=== PATIENT | female | born 1945 | race Caucasian/White ===

== ENCOUNTER 2018-11-23 10:33 | Inpatient (IN) | payer MEDICARE, BC ==
--- NOTE | 2018-11-23 10:54 | ED ---
Shortness of Breath - HPI Summary HPI Summary: A 73 y/o F brought in by ambulance presents to ED with c/o SOB onset 4-5 weeks ago and worsening. She states she was remodeling her bathroom, and her house 4- 5 weeks ago became very ioana, and she's be have SOB since. She has SOB even at rest. EMS gave her a nebulizer en route to ED. At bedside, she is feeling better. Associated sx: bilateral LE edema. She's had some weight increase. She takes Torsemide 10mg daily. She sleeps on three pillows which is her baseline. Pt denies any fever, chills, erythema of eyes, sore throat, CP, cough, abdominal pain, N/V, dysuria, hematuria, myalgia, rash, or dizziness. She is a former smoker, quit in 1995. - History of Current Complaint Time Seen by Provider: 11/23/18 10:34 Hx Obtained From: Patient Onset/Duration: Lasting Weeks, Still Present Timing: Constant Current Severity: Moderate Dyspnea At: Rest Associated Signs & Symptoms: Edema - bilat Le Related History: Obesity - Allergy/Home Medications Allergies/Adverse Reactions: Allergies Allergy/AdvReac Type Severity Reaction Status Date / Time hydralazine AdvReac Difficulty Verified 11/28/18 05:56 Breathing Home Medications: Home Medications Allopurinol TAB* [Zyloprim 100 MG TAB*] 200 mg PO QPM 11/23/18 [History Confirmed 11/23/18] Fluticasone-Salmeterol 250-50* [Advair Diskus 250-50*] 1 puff INH BID 11/23/18 [ History Confirmed 11/23/18] Metoprolol Succinate XL TAB* [Toprol XL TAB*] 100 mg PO QPM 11/23/18 [History Confirmed 11/23/18] Multivitamins/Minerals TAB* [Theragran/minerals TAB*] 1 tab PO DAILY 11/23/18 [ History Confirmed 11/23/18] PMH/Surg Hx/FS Hx/Imm Hx Previously Healthy: No Cardiovascular History: Reports: Hx Pacemaker/ICD Respiratory History: Reports: Hx Asthma, Hx Sleep Apnea Sensory History: Denies: Hx Legally Blind, Hx Deafness EENT History: Denies: Hx Deafness Infectious Disease History: No Infectious Disease History: Denies: Traveled Outside the [place] in Last 30 Days - Social History Occupation: Retired Lives: Alone Alcohol Use: Occasionally Hx Tobacco Use: Yes Smoking Status (MU): Former Smoker Review of Systems Negative: Fever, Chills Negative: Erythema Negative: Sore Throat Negative: Chest Pain Positive: Shortness Of Breath. Negative: Cough Negative: Abdominal Pain, Vomiting, Nausea Negative: dysuria, hematuria Positive: Edema - bilat LE. Negative: Myalgia Negative: Rash Neurological: Other - neg: dizziness All Other Systems Reviewed And Are Negative: Yes Physical Exam - Summary Physical Exam Summary: Constitutional: Well-developed, Well-nourished, Alert. (-) Distressed Skin: Warm, Dry HENT: Normocephalic; Atraumatic Eyes: Conjunctiva normal Neck: Musculoskeletal ROM normal neck. (-) JVD, (-) Stridor, (-) Tracheal deviation Cardio: Rhythm regular, rate normal, Heart sounds normal; Intact distal pulses; The pedal pulses are 2+ and symmetric. Radial pulses are 2+ and symmetric. (-) Murmur Pulmonary/Chest wall: Effort normal. (-) Respiratory distress, Crackles, Wheezes , (-) Rales Abd: Soft, (-) epigastric tenderness, (-) Distension, (-) Guarding, (-) Rebound Musculoskeletal: 1+ pitting edema Lymph: (-) Cervical adenopathy Neuro: Alert, Oriented x3 Psych: Mood and affect Normal Triage Information Reviewed: Yes Vital Signs On Initial Exam: Initial Vitals Temp Pulse Resp BP Pulse Ox 98.9 F 75 24 166/78 90 11/23/18 10:39 11/23/18 10:39 11/23/18 10:39 11/23/18 10:39 11/23/18 10:39 Vital Signs Reviewed: Yes Diagnostics - Vital Signs Vital Signs Temp Pulse Resp BP Pulse Ox 11/23/18 10:39 98.9 F 75 24 166/78 90 - Laboratory Result Diagrams: 11/29/18 05:20 12/04/18 06:52 Lab Statement: Any lab studies that have been ordered have been reviewed, and results considered in the medical decision making process. - Radiology CXR Radiology Interpretation Completed By: Radiologist Summary of Radiographic Findings: IMPRESSION: pulmonary edema. ED provider has reviewed this report. - EKG 1049 Cardiac Rate: NL - 83 bpm, PACED Summary of EKG Findings: No STEMI Re-Evaluation - Re-Evaluation 1 Re-Evaluation Time: 12:40 Change: Unchanged Comment: Discussed plan to likely admit patient due to the pulmonary edema. Pt is agreeable to this. Course/Dx - Course Course Of Treatment: Pt is a 73 y/o F brought in by ambulance presenting with SOB at rest onset 4-5 weeks ago and worsening. She was remodeling her bathroom and it got very ioana, and she's be have SOB since. EMS gave her a nebulizer en route to ED. At bedside, she is feeling better. Associated sx: bilateral LE edema. She's had some weight increase. She takes Torsemide 10mg daily. She sleeps on three pillows which is her baseline. She is a former smoker, quit in 1995. Lab work shows: BNP >1300, total bili 2.40, glucose: 119. CXR reveals: pulmonary edema. EKG shows paced rhythm at [address] Logan , hospitalist, who will accept pt for admission. - Diagnoses Provider Diagnoses: Acute exacerbation of CHF (congestive heart failure) - Physician Notifications Discussed Care of Patient With: Reji Logan - hospitalist Time Discussed With Above Provider: 13:14 Instructed by Provider To: Admit As Inpatient - Critical Care Time Critical Care Time: 30-74 min - 45 mins Discharge - Sign-Out/Discharge Documenting (check all that apply): Patient Departure - ADMIT Patient Received Moderate/Deep Sedation with Procedure: No - Discharge Plan Condition: Good Disposition: ADMITTED TO [facility] - Billing Disposition and Condition Condition: GOOD Disposition: Admitted to [facility] - Attestation Statements Document Initiated by Scribe: Yes Documenting Scribe: Yoselin Hale Provider For Whom Shanaibe is Documenting (Include Credential): Dr. Arturo Nolasco MD Scribe Attestation: I, shana Garyibed for Dr. Arturo Nolasco MD on 12/13/18 at 0729. Scribe Documentation Reviewed: Yes Provider Attestation: The documentation as recorded by the Yoselin alvarez accurately reflects the service I personally performed and the decisions made by me, Dr. Arturo Nolasco MD Status of Scribe Document: Viewed
[2018-11-23] MEDS ORDERED: Furosemide IV* 10 MG/ML 2 ML VIAL (20 MG) IV SLOW PU ONE (10:58)
[2018-11-23] MEDS ORDERED: Nitro 2% OINT* (Nitroglycerin) 1 INCH/PAK PAK TOPICAL ONE (10:59)
[2018-11-23 12:43] LABS: ABS Basophils 0.1 10^3/ul (0-0.2); ABS Eosinophils 0.1 10^3/ul (0-0.6); ABS Lymphocytes 0.6 10^3/ul (1.0-4.8); ABS Monocytes 0.7 10^3/ul (0-0.8); ABS Neutrophils 5.1 10^3/ul (1.5-7.7); ABS Nucleated RBC 0 10^3/ul; Eosinophil % 2.2 %; Hematocrit 39 % (35-47); Hemoglobin 12.6 g/dl (12.0-16.0); Lymphocyte % 8.8 %; Mean Corpuscular HGB Conc 32 g/dl (31-36); Mean Corpuscular Hemoglobin 30 pg (27-31); Mean Corpuscular Volume 94 fL (80-97); Mean Platelet Volume 9.1 fL (7.4-10.4); Nucleated Red Blood Cells % 0.1; Platelet Count 195 10^3/ul (150-450); Red Cell Distribution Width 17 % (10.5-15); White Blood Count 6.5 10^3/ul (3.5-10.8)
[2018-11-23 12:56] LABS: Albumin 3.9 g/dL (3.2-5.2); Albumin/Globulin Ratio 1.1 (1-3); BUN/Creatinine Ratio 20.2 (8-20); Calcium 9.6 mg/dL (8.6-10.3); EGFR African American 51.4 (>60); EGFR Non-African American 42.5 (>60); Globulin 3.7 g/dL (2-4); Potassium 3.8 mmol/L (3.5-5.0); Total Bilirubin 2.4 mg/dL (0.2-1.0); Total Protein 7.6 g/dL (6.4-8.9); Troponin I 0.03 ng/mL (<0.04)
[2018-11-23] MEDS ORDERED: Acetaminophen TAB* 325 MG PO PRN (14:31)
[2018-11-23] MEDS ORDERED: Ondansetron INJ* 2 MG/ML VIAL IV PRN (14:31)
[2018-11-23] MEDS ORDERED: Dextrose 50% Syringe 50 ML* 25 GM/50 ML SYRINGE IV PUSH PRN (14:49)
[2018-11-23] MEDS ORDERED: Perflutren Lipid Microsphere* 3 ML VIAL ONE (15:42)
[2018-11-23 15:48] LABS: Troponin I 0.04 ng/mL (<0.04)
[2018-11-23] MEDS: Insulin LISPRO* 1 UNITS UNIT SUBCUT SCH ×2 (17:02→21:35)
[2018-11-23] MEDS: Metoprolol Succinate XL TAB* 100 MG PO SCH (17:06)
[2018-11-23] MEDS: Atorvastatin* 10 MG TAB PO SCH (17:06)
[2018-11-23] MEDS: Potassium Chlor TAB* 20 MEQ TAB.ER PO SCH (17:06)
[2018-11-23] MEDS: Furosemide IV* 10 MG/ML VIAL (40 MG) IV SLOW PU SCH (17:07)
[2018-11-23] MEDS: Allopurinol TAB* 100 MG PO SCH (17:07)
--- NOTE | 2018-11-23 18:14 | ECHO ---
Patient: GIUSEPPE BARKSDALE [facility] Rec#: [id number] : 1945 Date: 11/23/2018 Age: 73y Height: 165 cm / 65.0 in Weight: 123 kg / 271.1 lbs Sex: F BSA: 2.25 Room#: 17 Admit Date#: 11/23/2018 Type: Inpatient Referring: Sekou Galvan Reading: Elier Hoskins MD Furniture Cleaner: Micaela Lopez,HUMBLECS,RDMS CC: Arthur Pham Transthoracic Echocardiogram Indication: CHF BP: 160/73 HR: 70 Rhythm: Paced Findings History: Shortness of breath, edema, AOV replacement, pacemaker, DAIN, former smoker, morbid obesity Technical Comments: The study quality is poor. Patient was scanned sitting upright in a chair. Left Ventricle: The left ventricular chamber size is normal. Moderate concentric left ventricular hypertrophy is observed. There is a prominent septal knuckle. The estimated ejection fraction is 55-60%. There is septal flattening of the interventricular septum consistent with right ventricular volume or pressure overload. Abnormal left ventricular diastolic function is observed. The left ventricular diastolic filling pattern is consistent with pseudonormalization. Left Atrium: The left atrium is severely dilated. Right Ventricle: The right ventricle wall thickness is moderately increased. The right ventricle is moderately dilated. The right ventricular global systolic function is mildly reduced. Right Atrium: The right atrial cavity size is severely dilated. Aortic Valve: The aortic valve structure is not well visualized. There is no evidence of aortic regurgitation. The mean gradient of the aortic valve is 15 mmHg. The aortic valve area, by peak velocities, is calculated at 1 cm2. A bio-prosthetic aortic valve is present. Velocities upper limits of normal; probable normal function. Mitral Valve: There is mitral annular calcification. The mitral valve leaflets are mildly thickened. Mitral valve leaflet mobility is mildly restricted. There is mild to moderate mitral regurgitation. There is mild mitral stenosis. The mean gradient across the mitral valve is 6 mmHg. The mitral valve area, by pressure half time, is calculated at 2.7 cm2. Tricuspid Valve: The tricuspid valve leaflets are normal. There is mild to moderate tricuspid regurgitation. The right ventricular systolic pressure is estimated at 82 mmHg. There is evidence of severe pulmonary hypertension. Pulmonic Valve: The pulmonic valve structure is not well visualized. There is no evidence of pulmonic regurgitation. Pericardium: There is no significant pericardial effusion. Aorta: The aortic root appears normal. The aortic arch is not well visualized. Pulmonary Artery: The main pulmonary artery is not well visualized. Venous: The inferior vena cava is dilated. There is less than 50% respiratory change in the inferior vena cava dimension. Contrast: Definity was used to optimize study. A total of 4 ml was used. Summary: There was not any prior study for comparison. Conclusions The study quality is poor. Moderate concentric left ventricular hypertrophy is observed. There is a prominent septal knuckle. The estimated ejection fraction is 55-60%. There is septal flattening of the interventricular septum consistent with right ventricular volume or pressure overload. The left ventricular diastolic filling pattern is consistent with pseudonormalization. The left atrium is severely dilated. The right ventricle wall thickness is moderately increased. The right ventricle is moderately dilated. The right ventricular global systolic function is mildly reduced. The right atrial cavity size is severely dilated. A bio-prosthetic aortic valve is present. Velocities upper limits of normal; probable normal function. Mitral valve leaflet mobility is mildly restricted. There is mild mitral stenosis. There is mild to moderate mitral regurgitation. There is mild to moderate tricuspid regurgitation. The right ventricular systolic pressure is estimated at 82 mmHg. There is evidence of severe pulmonary hypertension. Severe pulmonary hypertension may be related to pulmonary disease. Difficult to assess the MR; consider GENEVIEVE if there is a high index of suspicion for severe MR. Measurements Name Value Normal Range RVIDd (AP) 2D 4.5 cm (0.9 - 2.6) RAd ISD 4CH 7.1 cm (3.4 - 4.9) RA (A4C)W 4.4 cm (2.9 - 4.6) IVSd (2D) 1.7 cm (0.6 - 1) LVPWd (2D) 1.3 cm (0.6 - 1) LVIDd (2D) 4.4 cm (3.6 - 5.4) LVIDs (2D) 2.7 cm - LV FS (2D) 38 % (25 - 45) Aortic Annulus 1.6 cm (1.4 - 2.6) Ao root diameter (2D) 2.2 cm (2.1 - 3.5) Ascending Ao 2.2 cm (2.1 - 3.4) LA dimension (AP) 2D 4.8 cm (2.3 - 3.8) LAd ISD 4CH 6.3 cm (2.9 - 5.3) LA ISD 4CH W 6.8 cm (2.5 - 4.5) Name Value Normal Range MV E-wave Vmax 1.8 m/sec - MV deceleration time 198 msec - MV A-wave Vmax 1.2 m/sec - MV E:A ratio 1.5 ratio - LV septal e' Vmax 0.04 m/sec - LV lateral e' Vmax 0.05 m/sec - LV E:e' septal ratio 45 ratio - LV E:e' lateral ratio 36 ratio - Name Value Normal Range AV Vmax 2.5 m/sec - AV VTI 59 cm - AV peak gradient 25 mmHg - AV mean gradient 15 mmHg - LVOT diameter 1.5 cm - LVOT Vmax 1.4 m/sec - LVOT VTI 29 cm - LVOT peak gradient 8 mmHg - LVOT mean gradient 4 mmHg - DOI (VTI) 0.5 ratio - MARK (continuity Vmax) 1 cm2 - MARK (continuity VTI) 0.9 cm2 - Name Value Normal Range MV Vmax 1.8 m/sec - MV VTI 52 cm - MV peak gradient 14 mmHg - MV mean gradient 6 mmHg - MV PHT 82 msec - MR Vmax 5.8 m/sec - MR VTI 178 cm - MVA (PHT) 2.7 cm2 - MVA (continuity VTI) 1 cm2 - Name Value Normal Range TR Vmax 4.1 m/sec - TR peak gradient 67 mmHg - RAP 15 mmHg - RVSP 82 mmHg - IVC diameter 3.2 cm - Name Value Normal Range PV Vmax 0.9 m/sec - PV peak gradient 3.2 mmHg -
--- NOTE | 2018-11-23 20:13 | HP ---
CC: Dr. Kenan Maurice; Dr. Reji Logan; Dr. Arthur Pham* ADMISSION HISTORY AND PHYSICAL: DATE OF ADMISSION: 11/23/18 PRIMARY CARE PROVIDER: Dr. Kenan Maurice. OUTPATIENT COMPENSATION AND HRIS ANALYST: Dr. Arthur Pham. MY ATTENDING WHILE IN THE HOSPITAL: Dr. Reji Logan* (dictated by NICOLE Naranjo). CHIEF COMPLAINT: Severe shortness of breath x1 day. HISTORY OF PRESENT ILLNESS: Ms. Ovalles is 73-year-old female with past medical history significant for asthma, AFib, sleep apnea, and pacemaker for sick sinus syndrome as well as aortic valve replacement for aortic insufficiency , who presented to the emergency department for 1 day of severe shortness of breath. The patient has been having worsening shortness of breath in the past 3 weeks. She attributed it to a cold or worsening of asthma, but initially it responded to inhaler treatments, however, it has become more refractory over the past 3 weeks. Today, she was unable to walk up and down 3 steps without being severely short of breath and called the ambulance. The patient for several months now has been having worsening lower extremity swelling as well as increasing abdominal girth. The patient believes she has gained 25 pounds in that time. The patient states that she tries to watch salt in her diet, but admits she is able to identify several high salt foods such as potato chips, pizza and can soups that she eats routinely. The patient has never had a heart attack. The patient did not have any chest pain. The patient has no known history of IA. The patient had her pacemaker put in several years ago. The patient had an aortic valve replacement for aortic insufficiency 2 to 3 years ago and does not have any known issues with that. The patient has obstructive sleep apnea and uses a CPAP at home. The patient denies any noncompliants with this. The patient followed up with Dr. Pham approximately 4 months ago and will see him again in a month for a repeat echo. The patient has 3-pillow orthopnea, but cannot state a time of onset for this. The patient denies fevers , chills, nausea, vomiting, abdominal pain or diarrhea. The patient can identify no inciting events for the onset of her symptoms nor anything that has changed over the past day. The patient has no sick contacts or exposures to the flu or other upper respiratory symptoms. The patient denies palpitations. The patient's most recent pacemaker interrogation showed to have no other recent changes from medications. The patient in the emergency department was needing supplemental oxygen to maintain oxygen saturation above 90%. The patient has had a BNP, TAO, and we were asked to evaluate for admission for heart failure exacerbation. PAST MEDICAL HISTORY: Asthma; aortic insufficiency, status post replacement; paroxysmal atrial fibrillation; sick sinus syndrome; obstructive sleep apnea and diabetes mellitus. PAST SURGICAL HISTORY: Pacemaker insertion, aortic valve replacement, right hip surgery x2, right thumb surgery x2, tonsillectomy, , cholecystectomy and partial hysterectomy. MEDICATIONS: 1. Tylenol 650 mg p.o. q.6 hours as needed. 2. Demadex 10 mg p.o. daily. 3. Multivitamin 1 tab p.o. daily. 4. ProAir 2 puffs inhalation q.4 hours as needed. 5. Metoprolol succinate 100 mg p.o. daily. 6. Lovastatin 40 mg p.o. daily. 7. Topicort 0.5 % topical b.i.d. as needed. 8. Vitamin D and calcium 1 tab p.o. b.i.d. 9. Eliquis 5 mg p.o. b.i.d. 10. Allopurinol 200 mg p.o. q.p.m. 11. Advair 250/50 one puff inhalation b.i.d. ALLERGIES: CATS. FAMILY HISTORY: The patient's mother of old age. The patient's father of heart disease and complications of alcoholism. The patient has a brother who of lymphoma, a sister who has diabetes, a sister who has a heart valve issue and another sister who of ruptured cerebral aneurysm. SOCIAL HISTORY: The patient quit smoking in 1995. The patient smoked on and off from her teenage years until at that point. The patient drinks occasional alcohol. Denies illicit drug use. 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 The patient is and has 2 children. The patient's surrogate decision maker will be her daughter, Boo Ovalles. REVIEW OF SYSTEMS: A 14-point review of systems was reviewed and is negative except as above in the HPI. PHYSICAL EXAMINATION GENERAL: The patient is a 73-year-old female, who appears stated age and sitting comfortably in bed, in no acte distress. VITAL SIGNS: Temperature 98.9, pulse rate 70, respirations 21, oxygen saturation 97% on 2 L. Blood pressure 160/73. HEENT: Head: Normocephalic, atraumatic. Sclerae anicteric. No conjunctival injection. Nasal mucosa moist. Oral mucosa moist. No pharyngeal erythema, discharge, or exudate. NECK: Supple, nontender. No lymphadenopathy. No carotid bruits auscultated. No JVD. RESPIRATORY: Diminished in the bilateral lower lobes, slight wheezes heard in the bilateral middle lobes, good air exchange bilaterally. No adventitious lung sounds. CARDIAC: Regular rate and rhythm. No clicks, gallops, or rubs. Grade 2/6 systolic ejection murmur, heard best at the right upper sternal border. ABDOMEN: Soft, nontender, nondistended. Umbilical hernia present. No hepatosplenomegaly. No abdominal bruits auscultated. No hepatojugular reflux. GENITOURINARY: No suprapubic or CVA tenderness. SKIN: Dry skin in the bilateral lower extremities. 2+ pitting edema in bilateral lower extremities. PSYCHIATRIC: Pleasant and cooperative. DIAGNOSTIC STUDIES/LAB DATA: White blood cell count 6.5, hemoglobin 12.6, platelet count 195. Sodium 145, potassium 3.8, chloride 102, carbon dioxide 33 , anion gap 9, BUN 25, creatinine 1.24, glucose 119, lactic acid 1.8, calcium 9.6. Bilirubin 2.4, AST 26, ALT 15, alkaline phosphatase 109, troponin I 0.03, BNP greater than 1500. Protein 7.6, albumin 3.9, globulin 3.7. Studies: Electrocardiogram shows paced rhythm, rate of 70, left bundle branch morphology, unable to interpret for ischemic changes. Chest x-ray read as pulmonary edema. Left axillary surgical clips. Cardiomegaly. Prosthetic aortic valves. ASSESSMENT AND PLAN: Impression: Ms. Ovalles is a 73-year-old female with past medical history significant for hypertension, asthma, aortic insufficiency , atrial fibrillation, obstructive sleep apnea, and sick sinus syndrome, who presented to the emergency department with several months of increased weight gain, leg swelling and several weeks of increased shortness of breath and was found to be in acute heart failure. The patient will be admitted to the hospital for repeat echocardiogram and diuresis. 1. Acute heart failure, unknown type. The patient has no known history of heart failure, reduced ejection fraction. The patient has a history of aortic insufficiency and a history of aortic valve replacement. We will update the patient's echocardiogram. If indicted, patient's pacemaker should be interrogated. We will get patient's most recent rehab tech's notes. The patient will be started on furosemide 40 mg IV b.i.d. The patient will have troponins, if elevated, repeat EKG in the morning. The patient may need further ischemic workup if she is found to have a reduced ejection fraction. The patient will be continued on her metoprolol. If patient has reduced ejection fraction, additional medications such as an SHAHEEN inhibitor and spironolactone should be considered. The patient will have strict I's and O's and daily weights. 2. Asthma. The patient will have DuoNeb p.r.n. and home inhalers. The patient 's wheezing is likely due to pulmonary edema and likely not related to asthma exacerbation. 3. Sick sinus syndrome. The patient has a pacemaker. 4. Paroxysmal atrial fibrillation. The patient appears to be normal sinus rhythm. Continue patient's Eliquis and metoprolol. The patient has a pacemaker. 5. Obstructive sleep apnea. The patient has a CPAP, she will use her home CPAP while in the hospital. 6. Diabetes mellitus. The patient states she has diabetes mellitus, but is on medications for it. We will check a hemoglobin A1c and maintain her blood sugars with insulin sliding scale while in the hospital. 7. FEN: The patient is fluid overloaded. The patient will have the a heart- healthy diet without caffeine. 8. Disposition. The patient will be admitted inpatient with an expected time of stay greater than 2 days. 9. Code status. The patient would like to be a full code. The patient's surrogate decision maker will be her daughter as above. 10. DVT prophylaxis. The patient is on Eliquis. TIME SPENT: Approximately 60 minutes was spent on the admission of this patient , 30 of which was spent [id number] with the patient obtaining history and physical and discussing treatment plan. Plan was discussed with my attending, Dr. Jason Logan, she is in agreement. NICOLE NARANJO [id number]/[facility] #: [id number] [place]
[2018-11-23 20:57] LABS: Troponin I 0.04 ng/mL (<0.04)
[2018-11-23] MEDS: Apixaban* 5 MG TAB PO SCH (21:11)
[2018-11-23] MEDS: Mometasone/Formoter 200/5 MDI INH SCH (21:52)
[2018-11-24 06:08] LABS: ABS Basophils 0.1 10^3/ul (0-0.2); ABS Eosinophils 0.2 10^3/ul (0-0.6); ABS Lymphocytes 0.7 10^3/ul (1.0-4.8); ABS Monocytes 0.8 10^3/ul (0-0.8); ABS Nucleated RBC 0 10^3/ul; Eosinophil % 3.7 %; Hematocrit 36 % (35-47); Hemoglobin 11.4 g/dl (12.0-16.0); Lymphocyte % 11.2 %; Mean Corpuscular HGB Conc 32 g/dl (31-36); Mean Corpuscular Hemoglobin 30 pg (27-31); Mean Corpuscular Volume 94 fL (80-97); Mean Platelet Volume 9.2 fL (7.4-10.4); Nucleated Red Blood Cells % 0; Platelet Count 166 10^3/ul (150-450); Red Cell Distribution Width 17 % (10.5-15); White Blood Count 5.8 10^3/ul (3.5-10.8)
[2018-11-24 06:18] LABS: Calcium 9.1 mg/dL (8.6-10.3); Magnesium 1.7 mg/dL (1.9-2.7); Potassium 3.7 mmol/L (3.5-5.0)
[2018-11-24 06:24] LABS: BUN/Creatinine Ratio 20.1 (8-20); EGFR Non-African American 38.9 (>60)
[2018-11-24] MEDS: Mometasone/Formoter 200/5 MDI INH SCH ×2 (08:17→20:20)
[2018-11-24] MEDS: Insulin LISPRO* 1 UNITS UNIT SUBCUT SCH ×4 (08:22→20:49)
[2018-11-24] MEDS: Multivitamins/Minerals TAB PO SCH (08:23)
[2018-11-24] MEDS: Apixaban* 5 MG TAB PO SCH ×2 (08:23→21:09)
[2018-11-24] MEDS: Potassium Chlor TAB* 20 MEQ TAB.ER PO SCH (08:23)
[2018-11-24] MEDS: Furosemide IV* 10 MG/ML VIAL (40 MG) IV SLOW PU SCH ×2 (08:25→17:32)
[2018-11-24] MEDS ORDERED: Magnesium Sulfate 1 GM IV* 1 GM/100 ML BAG IV ONE (08:55)
[2018-11-24] MEDS ORDERED: Potassium Chloride LIQUID* 20 MEQ PACKET PO ONE (08:58)
[2018-11-24] MEDS: Albuterol/Ipratropium NEB.SOL* Albuterol 2.5 MG/Ipratropium 0.5 MG 3 ML INH PRN (12:06)
[2018-11-24 14:40] LABS: BUN/Creatinine Ratio 23.3 (8-20); Calcium 9.1 mg/dL (8.6-10.3); EGFR African American 49.2 (>60); EGFR Non-African American 40.6 (>60); Magnesium 1.9 mg/dL (1.9-2.7); Potassium 4.1 mmol/L (3.5-5.0)
--- NOTE | 2018-11-24 15:53 | PN ---
Subjective Date of Service: 11/24/18 Interval History: Episode of increase SOB this AM with RN - resolved with furosemide. On my interview, reports improvement in dyspnea from before admission. Symptoms with ambulation but not when upright in chair. Only sleeps in chair, for years. Objective Active Medications: Acetaminophen (Tylenol Tab*) 650 mg PO Q6H PRN PRN Reason: FEVER/PAIN Last Admin: 11/24/18 11:32 Dose: 650 mg Albuterol/Ipratropium (Duoneb (Albuterol 2.5 Mg/Ipratropium 0.5 Mg)) 1 neb INH Q4H PRN PRN Reason: SOB/WHEEZING Last Admin: 11/24/18 12:06 Dose: 1 neb Allopurinol (Zyloprim Tab*) 200 mg PO QPM [facility] Last Admin: 11/23/18 17:07 Dose: 200 mg Apixaban (Eliquis*) 5 mg PO BID [facility] Last Admin: 11/24/18 08:23 Dose: 5 mg Atorvastatin Calcium (Lipitor*) 10 mg PO QPM [facility]; Protocol Last Admin: 11/23/18 17:06 Dose: 10 mg Dextrose (D50w Syringe 50 Ml*) 12.5 gm IV PUSH .FOR FS < 60 - SS PRN PRN Reason: FS < 60 Furosemide (Lasix Iv*) 40 mg IV SLOW PU 0800,1700 [facility] Last Admin: 11/24/18 08:25 Dose: 40 mg Insulin Human Lispro (Humalog*) 0 units SUBCUT ACHS [facility]; Protocol Last Admin: 11/24/18 11:57 Dose: 3 units Metoprolol Succinate (Toprol Xl Tab*) 100 mg PO QPM [facility] Last Admin: 11/23/18 17:06 Dose: 100 mg Mometasone Furoate/Formoterol Fumar (Dulera 200/5 Mdi*) 2 puff INH BID [facility] Last Admin: 11/24/18 08:17 Dose: 2 puff Multivitamins/Minerals (Theragran/Minerals Tab*) 1 tab PO DAILY [facility] Last Admin: 11/24/18 08:23 Dose: 1 tab Ondansetron HCl (Zofran Inj*) 4 mg IV Q6H PRN PRN Reason: NAUSEA Vital Signs - 8 hr 11/24/18 11/24/18 08:00 08:20 Pulse Rate 70 Respiratory 20 14 Rate O2 Sat by Pulse 98 Oximetry Oxygen Devices in Use Now: Nasal Cannula Appearance: well appearing, sitting in chair and speaking full sentences Ears/Nose/Mouth/Throat: Mucous Membranes Moist Neck: - - unable to assess JVP given obese neck Respiratory: - - no crackles, decreased sounds at bases Cardiovascular: RRR Abdominal: NL Sounds; No Tenderness; No Distention Lymphatic: No Cervical Adenopathy Extremities: - - 2+ pitting edema to knees, R leg shorter than L Result Diagrams: 11/24/18 05:46 11/24/18 14:00 Assess/Plan/Problems-Billing 73W with HTN, HFpEF, DM2 on diet controll, bioprosthetic AV, afib, SSS with PPM , morbid obesity c/b DAIN, presents with SOB, found volume overloaded, now diuresing well on IV furosemide. - Patient Problems (1) Heart failure, diastolic, with acute decompensation Comment: Pt with dietary indiscretion at home - high salt. No other concerning signs/symptoms for other cause of exacerbation. Likely that pHTN is from HF with contribution from DAIN. - continue furosemide 40mg IV bid; monitor BMP and replete lytes prn - closely follow daily weights and Is & Os - attempting to contact outpatient department editor Vero - pt has follow up with echo scheduled for later this month (2) Obstructive sleep apnea Comment: - will use home CPAP while admitted (3) Hypertension Comment: cont home beta hedy (4) Morbid obesity with BMI of 40.0-44.9, adult Comment: diet and exercise encouraged (5) Atrial fibrillation Comment: AV paced - cont apixaban - on metoprolol succ 100mg daily (6) Asthma Comment: - home Dulera inhaler - cont nebs prn (7) Diabetes type 2, controlled Current Visit: Yes Status: Acute Code(s): E11.9 - TYPE 2 DIABETES MELLITUS WITHOUT COMPLICATIONS SNOMED Code(s): 94901902 Comment: Pt reports diet-controlled at home. - AISS with fingersticks while admitted - consider DC if low use - f/u A1c - cont home atorva (seems this was for primary ppx) (8) DVT prophylaxis Current Visit: Yes Comment: on DOAC for afib (9) Full code status Current Visit: Yes Status and Disposition: Will continue IV furosemide until symptoms and volume status improve.
[2018-11-24] MEDS: Atorvastatin* 10 MG TAB PO SCH (17:32)
[2018-11-24] MEDS: Metoprolol Succinate XL TAB* 100 MG PO SCH (17:32)
[2018-11-24] MEDS: Allopurinol TAB* 100 MG PO SCH (17:32)
[2018-11-25 06:37] LABS: Anion Gap 12 mmol/L (2-11); CO2 Carbon Dioxide 26 mmol/L (22-32); Chloride 104 mmol/L (101-111); Potassium 4.3 mmol/L (3.5-5.0); Sodium 142 mmol/L (135-145)
[2018-11-25 06:38] LABS: BUN/Creatinine Ratio 26.6 (8-20); Blood Urea Nitrogen 34 mg/dL (6-24); Calcium 8.9 mg/dL (8.6-10.3); EGFR African American 49.6 (>60); Glucose 139 mg/dL (70-100); Magnesium 1.9 mg/dL (1.9-2.7)
[2018-11-25 06:41] LABS: Troponin I 0.04 ng/mL (<0.04)
[2018-11-25] MEDS: Mometasone/Formoter 200/5 MDI INH SCH ×2 (08:15→19:57)
[2018-11-25] MEDS: Furosemide IV* 10 MG/ML VIAL (40 MG) IV SLOW PU SCH ×2 (08:39→17:14)
[2018-11-25] MEDS: Multivitamins/Minerals TAB PO SCH (08:39)
[2018-11-25] MEDS: Insulin LISPRO* 1 UNITS UNIT SUBCUT SCH ×4 (08:39→21:26)
[2018-11-25] MEDS: Apixaban* 5 MG TAB PO SCH ×2 (09:06→21:28)
[2018-11-25] MEDS: Metoprolol Succinate XL TAB* 100 MG PO SCH (17:14)
[2018-11-25] MEDS: Allopurinol TAB* 100 MG PO SCH (17:15)
[2018-11-25] MEDS: Atorvastatin* 10 MG TAB PO SCH (17:15)
[2018-11-25] MEDS ORDERED: GuaiFENesin DM sugar free* 5 ML UDC PO PRN (18:02)
--- NOTE | 2018-11-25 18:08 | PN ---
Subjective Interval History: Pt able to sleep on 2 pillows last night. Still requiring oxygen at rest - was not on oxygen supplemental at home. Has been peeing a lot. Objective Active Medications: Acetaminophen (Tylenol Tab*) 650 mg PO Q6H PRN PRN Reason: FEVER/PAIN Last Admin: 11/24/18 11:32 Dose: 650 mg Albuterol/Ipratropium (Duoneb (Albuterol 2.5 Mg/Ipratropium 0.5 Mg)) 1 neb INH Q4H PRN PRN Reason: SOB/WHEEZING Last Admin: 11/24/18 12:06 Dose: 1 neb Allopurinol (Zyloprim Tab*) 200 mg PO QPM [facility] Last Admin: 11/25/18 17:15 Dose: 200 mg Apixaban (Eliquis*) 5 mg PO BID [facility] Last Admin: 11/25/18 09:06 Dose: 5 mg Atorvastatin Calcium (Lipitor*) 10 mg PO QPM [facility]; Protocol Last Admin: 11/25/18 17:15 Dose: 10 mg Dextrose (D50w Syringe 50 Ml*) 12.5 gm IV PUSH .FOR FS < 60 - SS PRN PRN Reason: FS < 60 Furosemide (Lasix Iv*) 40 mg IV SLOW PU 0800,1700 [facility] Last Admin: 11/25/18 17:14 Dose: 40 mg Guaifenesin/Dextromethorphan (Robitussin Dm Sugar Free*) 10 ml PO Q6H PRN PRN Reason: Cough/phlegm Insulin Human Lispro (Humalog*) 0 units SUBCUT ACHS [facility]; Protocol Last Admin: 11/25/18 17:14 Dose: 2 units Metoprolol Succinate (Toprol Xl Tab*) 100 mg PO QPM [facility] Last Admin: 11/25/18 17:14 Dose: 100 mg Mometasone Furoate/Formoterol Fumar (Dulera 200/5 Mdi*) 2 puff INH BID [facility] Last Admin: 11/25/18 08:15 Dose: 2 puff Multivitamins/Minerals (Theragran/Minerals Tab*) 1 tab PO DAILY [facility] Last Admin: 11/25/18 08:39 Dose: 1 tab Ondansetron HCl (Zofran Inj*) 4 mg IV Q6H PRN PRN Reason: NAUSEA Vital Signs - 8 hr 11/25/18 11/25/18 12:05 15:40 Temperature 97.6 F 98.2 F Pulse Rate 70 70 Respiratory 22 20 Rate Blood Pressure 136/68 139/67 (mmHg) O2 Sat by Pulse 96 97 Oximetry Oxygen Devices in Use Now: Nasal Cannula Appearance: well appearing sitting in chair and speaking full sentences Neck: - - unable to assess JVP Respiratory: Clear to Auscultation Cardiovascular: RRR Abdominal: NL Sounds; No Tenderness; No Distention Extremities: - - 2+ pitting edema half way up shins - improved from yesterday Result Diagrams: 11/24/18 05:46 11/25/18 05:22 Assess/Plan/Problems-Billing 73W with HTN, HFpEF, DM2 on diet control, bioprosthetic AV, afib on AC, SSS with PPM, morbid obesity c/b DAIN, asthma, presents with SOB, found volume overloaded, now diuresing well on IV furosemide. - Patient Problems (1) Heart failure, diastolic, with acute decompensation Comment: Pt with dietary indiscretion at home - high salt. No other concerning signs/symptoms for other cause of exacerbation. Likely that pHTN is from HF with contribution from DAIN. - continue furosemide 40mg IV bid; monitor BMP and replete lytes prn - closely follow daily weights and Is & Os - attempting to contact outpatient portfolio administrator Vero - pt has follow up with echo scheduled for later this month - CPAP for DAIN should help remove fluid - titrate off O2 as tolerated (2) Obstructive sleep apnea Comment: - will use home CPAP while admitted (3) Atrial fibrillation Comment: AV paced - cont apixaban - on metoprolol succ 100mg daily (4) Hypertension Comment: cont home beta hedy (5) Morbid obesity with BMI of 40.0-44.9, adult Comment: diet and exercise encouraged (6) Asthma Comment: - home Dulera inhaler - cont nebs prn (7) Diabetes type 2, controlled Comment: Diet-controlled at home. A1c here 6.8%. - AISS with fingersticks while admitted - consider DC if low use - cont home atorva (seems this was for primary ppx) (8) DVT prophylaxis Comment: on DOAC for afib (9) Full code status Comment: Daughter oBo phone: [phone] Status and Disposition: Will continue IV furosemide until symptoms and volume status improve. Consider home services (LAB SYSTEMS ANALYST vs [facility]). Boo (daughter): [phone] wants to be updated with plan.
[2018-11-26] MEDS: Mometasone/Formoter 200/5 MDI INH SCH ×2 (07:48→19:21)
[2018-11-26] MEDS: Multivitamins/Minerals TAB PO SCH (08:25)
[2018-11-26] MEDS: Insulin LISPRO* 1 UNITS UNIT SUBCUT SCH ×4 (08:25→20:00)
[2018-11-26] MEDS: Furosemide IV* 10 MG/ML VIAL (40 MG) IV SLOW PU SCH ×2 (08:25→17:31)
[2018-11-26] MEDS: Apixaban* 5 MG TAB PO SCH ×2 (08:25→20:00)
[2018-11-26 08:30] LABS: BUN/Creatinine Ratio 25.8 (8-20); Calcium 9.4 mg/dL (8.6-10.3); EGFR African American 47.9 (>60); EGFR Non-African American 39.6 (>60); Magnesium 1.9 mg/dL (1.9-2.7)
--- NOTE | 2018-11-26 10:07 | PN ---
Subjective Date of Service: 11/26/18 Interval History: HD #4 on 11/26 73W with HTN, HFpEF, DM2 on diet control, bioprosthetic AV, afib on AC, SSS with PPM, morbid obesity c/b DAIN, asthma, presents with SOB, found volume overloaded Overnight no acute event, VSS 2L NC. +UOP Balance -170 for 24 hours, +BM Labs reviewed this morning metabolic alkalosis->contraction. Seen this evening, pleasant but still feeling SOB, reports mildly improved since admission, no CP, no palps, does still have edema but not painful. After discussion says she has been gaining weight since , and SOB started then as well. Will reach out to Dr. Bajwa tomorrow. Small nosebleed today, will offer spray. Objective Active Medications: Acetaminophen (Tylenol Tab*) 650 mg PO Q6H PRN PRN Reason: FEVER/PAIN Last Admin: 11/24/18 11:32 Dose: 650 mg Albuterol/Ipratropium (Duoneb (Albuterol 2.5 Mg/Ipratropium 0.5 Mg)) 1 neb INH Q4H PRN PRN Reason: SOB/WHEEZING Last Admin: 11/24/18 12:06 Dose: 1 neb Allopurinol (Zyloprim Tab*) 200 mg PO QPM [facility] Last Admin: 11/25/18 17:15 Dose: 200 mg Apixaban (Eliquis*) 5 mg PO BID [facility] Last Admin: 11/26/18 08:25 Dose: 5 mg Atorvastatin Calcium (Lipitor*) 10 mg PO QPM [facility]; Protocol Last Admin: 11/25/18 17:15 Dose: 10 mg Dextrose (D50w Syringe 50 Ml*) 12.5 gm IV PUSH .FOR FS < 60 - SS PRN PRN Reason: FS < 60 Furosemide (Lasix Iv*) 40 mg IV SLOW PU 0800,1700 [facility] Last Admin: 11/26/18 08:25 Dose: 40 mg Guaifenesin/Dextromethorphan (Robitussin Dm Sugar Free*) 10 ml PO Q6H PRN PRN Reason: Cough/phlegm Insulin Human Lispro (Humalog*) 0 units SUBCUT ACHS [facility]; Protocol Last Admin: 11/26/18 08:25 Dose: 2 units Metoprolol Succinate (Toprol Xl Tab*) 100 mg PO QPM [facility] Last Admin: 11/25/18 17:14 Dose: 100 mg Mometasone Furoate/Formoterol Fumar (Dulera 200/5 Mdi*) 2 puff INH BID [facility] Last Admin: 11/26/18 07:48 Dose: 2 puff Multivitamins/Minerals (Theragran/Minerals Tab*) 1 tab PO DAILY [facility] Last Admin: 11/26/18 08:25 Dose: 1 tab Ondansetron HCl (Zofran Inj*) 4 mg IV Q6H PRN PRN Reason: NAUSEA Vital Signs - 8 hr 11/26/18 11/26/18 11/26/18 03:33 06:14 06:30 Temperature 97.3 F 97.8 F Pulse Rate 70 69 Respiratory 20 24 22 Rate Blood Pressure 148/76 156/75 (mmHg) O2 Sat by Pulse 94 98 Oximetry 11/26/18 11/26/18 07:50 07:51 Temperature Pulse Rate 71 71 Respiratory 14 14 Rate Blood Pressure (mmHg) O2 Sat by Pulse 94 94 Oximetry Oxygen Devices in Use Now: Nasal Cannula Appearance: Pleasant well appearing woman mild SOB after long conversation Eyes: No Scleral Icterus, PERRLA Ears/Nose/Mouth/Throat: NL Teeth, Lips, Gums, Mucous Membranes Moist Respiratory: - - Distant airsounds but no specific crackles, mild diminshed to bases, no wheeze Cardiovascular: RRR, - - Pacer Abdominal: No Hepatosplenomegaly, - - Mild distention non tender NABS Extremities: - - 4+ pitting edema to upper domínguez, dopplerable pulses per RN report Skin: No Rash or Ulcers Neurological: Alert and Oriented x 3 Result Diagrams: 11/24/18 05:46 11/26/18 07:56 Assess/Plan/Problems-Billing 73W with HTN, HFpEF, DM2 on diet control, bioprosthetic AV, afib on AC, SSS with PPM, morbid obesity c/b DAIN, asthma, presents with SOB, found volume overloaded, with sig elevated RSVP on echo here--now diuresing well on IV furosemide. Ddx worsening vs new? R sided CHF 2/2 MVI or other cause of pHTN, will reach out to outpt distribution operation supervisor - Patient Problems (1) Heart failure, diastolic, with acute decompensation Current Visit: Yes Status: Acute Code(s): I50.33 - ACUTE ON CHRONIC DIASTOLIC (CONGESTIVE) HEART FAILURE SNOMED Code(s): 714458387 Comment: Pt with dietary indiscretion at home - high salt. No other concerning signs/symptoms for other cause of exacerbation. Likely that pHTN is from HF with contribution from DAIN. - continue furosemide 40mg IV bid; monitor BMP and replete lytes prn - closely follow daily weights and Is & Os - attempting to contact outpatient distribution operation supervisor Vero - pt has follow up with echo scheduled for later this month-question if Mitral valve involvement - CPAP for DAIN should help remove fluid - titrate off O2 as tolerated - Contraction alkalosis today, continue to monitor (2) Atrial fibrillation Current Visit: Yes Status: Acute Code(s): I48.91 - UNSPECIFIED ATRIAL FIBRILLATION SNOMED Code(s): 31151110 Comment: AV paced - cont apixaban - on metoprolol succ 100mg daily (3) Hypertension Current Visit: Yes Status: Acute Code(s): I10 - ESSENTIAL (PRIMARY) HYPERTENSION SNOMED Code(s): 41013879 Comment: cont home beta hedy (4) Asthma Current Visit: Yes Status: Acute Code(s): J45.909 - UNSPECIFIED ASTHMA, UNCOMPLICATED SNOMED Code(s): 184271312 Comment: - home Dulera inhaler - cont nebs prn (5) Diabetes type 2, controlled Current Visit: Yes Status: Acute Code(s): E11.9 - TYPE 2 DIABETES MELLITUS WITHOUT COMPLICATIONS SNOMED Code(s): 37028874 Comment: Diet-controlled at home. A1c here 6.8%. - AISS with fingersticks while admitted - consider DC if low use - cont home atorva (seems this was for primary ppx) (6) Obstructive sleep apnea Current Visit: Yes Status: Acute Code(s): G47.33 - OBSTRUCTIVE SLEEP APNEA ( ADULT) (PEDIATRIC) SNOMED Code(s): 33458612 Comment: - will use home CPAP while admitted (7) Morbid obesity with BMI of 40.0-44.9, adult Current Visit: Yes Status: Acute Code(s): E66.01 - MORBID (SEVERE) OBESITY DUE TO EXCESS CALORIES; Z68.41 - BODY MASS INDEX (BMI) 40.0-44.9, ADULT SNOMED Code(s): 496041580 Comment: diet and exercise encouraged (8) DVT prophylaxis Current Visit: Yes Status: Acute Code(s): HVS5158 - SNOMED Code(s): 033655808 Comment: on DOAC for afib (9) Full code status Current Visit: Yes Status: Acute Code(s): Z78.9 - OTHER SPECIFIED HEALTH STATUS SNOMED Code(s): 964275371 Comment: Daughter Boo phone: [phone], updated today 11/26 Status and Disposition: Will continue IV furosemide until symptoms and volume status improve. Consider home services (ADDICTIONS COUNSELOR vs [facility]). Boo (daughter): [phone] wants to be updated with plan.
[2018-11-26] MEDS: Atorvastatin* 10 MG TAB PO SCH (17:31)
[2018-11-26] MEDS: Metoprolol Succinate XL TAB* 100 MG PO SCH (17:31)
[2018-11-26] MEDS: Allopurinol TAB* 100 MG PO SCH (17:31)
[2018-11-26] MEDS ORDERED: Oxymetazoline 0.05% NASAL SPR* 15 ML BTL BOTH NARES ONE (17:49)
[2018-11-27 06:18] LABS: ABS Basophils 0.1 10^3/ul (0-0.2); ABS Eosinophils 0.2 10^3/ul (0-0.6); ABS Lymphocytes 0.6 10^3/ul (1.0-4.8); ABS Monocytes 0.9 10^3/ul (0-0.8); ABS Neutrophils 6.1 10^3/ul (1.5-7.7); ABS Nucleated RBC 0 10^3/ul; Eosinophil % 3.1 %; Hematocrit 36 % (35-47); Hemoglobin 11.7 g/dl (12.0-16.0); Lymphocyte % 7.5 %; Mean Corpuscular HGB Conc 32 g/dl (31-36); Mean Corpuscular Hemoglobin 30 pg (27-31); Mean Corpuscular Volume 94 fL (80-97); Nucleated Red Blood Cells % 0; Platelet Count 181 10^3/ul (150-450); Red Blood Count 3.86 10^6/ul (4.00-5.40); Red Cell Distribution Width 17 % (10.5-15); White Blood Count 7.9 10^3/ul (3.5-10.8)
[2018-11-27 06:34] LABS: BUN/Creatinine Ratio 30.6 (8-20); Calcium 9.5 mg/dL (8.6-10.3); EGFR African American 58.5 (>60); EGFR Non-African American 48.3 (>60); Potassium 4.3 mmol/L (3.5-5.0)
[2018-11-27] MEDS: Saline NASAL DROPS 0.65%* 1 DROP BTL BOTH NARES PRN (06:38)
[2018-11-27] MEDS: Mometasone/Formoter 200/5 MDI INH SCH ×2 (07:49→20:09)
[2018-11-27] MEDS: Furosemide IV* 10 MG/ML VIAL (40 MG) IV SLOW PU SCH ×2 (08:28→17:11)
[2018-11-27] MEDS: Insulin LISPRO* 1 UNITS UNIT SUBCUT SCH ×4 (08:30→20:50)
[2018-11-27] MEDS: Multivitamins/Minerals TAB PO SCH (08:31)
[2018-11-27] MEDS: Apixaban* 5 MG TAB PO SCH ×2 (08:31→20:51)
[2018-11-27] MEDS: Albuterol/Ipratropium NEB.SOL* Albuterol 2.5 MG/Ipratropium 0.5 MG 3 ML INH PRN ×2 (08:53→14:09)
--- NOTE | 2018-11-27 14:18 | PN ---
Subjective Date of Service: 11/27/18 Interval History: HD #5 on 11/27 73W with HTN, HFpEF, DM2 on diet control, bioprosthetic AV, afib on AC, SSS with PPM, morbid obesity c/b DAIN, asthma, presents with SOB, found volume overloaded. Overnight no acute event, VSS 2L NC. +UOP Balance -500 for 24 hours, +BM, down 4 lbs since admission Labs reviewed this morning, stable Seen this afternoon, pleasant but still feeling SOB, reports mildly improved since admission, no CP, no palps, does still have edema but not painful. After discussion says she has been gaining weight since , and SOB started then as well. spoke to Dr. Baig her last dry weight was 240 , so about 14 lsb volume overloaded. Objective Active Medications: Acetaminophen (Tylenol Tab*) 650 mg PO Q6H PRN PRN Reason: FEVER/PAIN Last Admin: 11/24/18 11:32 Dose: 650 mg Albuterol/Ipratropium (Duoneb (Albuterol 2.5 Mg/Ipratropium 0.5 Mg)) 1 neb INH Q4H PRN PRN Reason: SOB/WHEEZING Last Admin: 11/27/18 14:09 Dose: 1 neb Allopurinol (Zyloprim Tab*) 200 mg PO QPM [facility] Last Admin: 11/26/18 17:31 Dose: 200 mg Apixaban (Eliquis*) 5 mg PO BID [facility] Last Admin: 11/27/18 08:31 Dose: 5 mg Atorvastatin Calcium (Lipitor*) 10 mg PO QPM [facility]; Protocol Last Admin: 11/26/18 17:31 Dose: 10 mg Dextrose (D50w Syringe 50 Ml*) 12.5 gm IV PUSH .FOR FS < 60 - SS PRN PRN Reason: FS < 60 Furosemide (Lasix Iv*) 40 mg IV SLOW PU 0800,1700 [facility] Last Admin: 11/27/18 08:28 Dose: 40 mg Guaifenesin/Dextromethorphan (Robitussin Dm Sugar Free*) 10 ml PO Q6H PRN PRN Reason: Cough/phlegm Insulin Human Lispro (Humalog*) 0 units SUBCUT ACHS [facility]; Protocol Last Admin: 11/27/18 11:24 Dose: 2 units Metoprolol Succinate (Toprol Xl Tab*) 100 mg PO QPM [facility] Last Admin: 11/26/18 17:31 Dose: 100 mg Mometasone Furoate/Formoterol Fumar (Dulera 200/5 Mdi*) 2 puff INH BID [facility] Last Admin: 11/27/18 07:49 Dose: 2 puff Multivitamins/Minerals (Theragran/Minerals Tab*) 1 tab PO DAILY [facility] Last Admin: 11/27/18 08:31 Dose: 1 tab Ondansetron HCl (Zofran Inj*) 4 mg IV Q6H PRN PRN Reason: NAUSEA Sodium Chloride (Sodium Chloride 0.65% Nasal Drops*) 1 drop BOTH NARES Q4H PRN PRN Reason: DRY SKIN Last Admin: 11/27/18 06:38 Dose: 1 drop Vital Signs - 8 hr 11/27/18 11/27/18 11/27/18 06:38 07:10 07:51 Temperature 97.7 F Pulse Rate 70 65 Respiratory 18 18 14 Rate Blood Pressure 154/68 (mmHg) O2 Sat by Pulse 97 97 Oximetry 11/27/18 11/27/18 11/27/18 08:55 11:46 14:11 Temperature 97.7 F Pulse Rate 70 70 70 Respiratory 20 18 18 Rate Blood Pressure 147/70 (mmHg) O2 Sat by Pulse 94 97 98 Oximetry Oxygen Devices in Use Now: Nasal Cannula Result Diagrams: 11/27/18 05:54 11/27/18 05:54 Assess/Plan/Problems-Billing 73W with HTN, HFpEF, pHTN (group 2/3), DM2 on diet control, bioprosthetic AV, afib on AC, SSS with PPM, morbid obesity c/b DAIN, asthma, presents with SOB, found volume overloaded, with sig elevated RSVP on echo here--now diuresing well on IV furosemide. Ddx worsening vs CHF in setting of dietary or diuretic failure. - Patient Problems (1) Heart failure, diastolic, with acute decompensation Current Visit: Yes Status: Acute Code(s): I50.33 - ACUTE ON CHRONIC DIASTOLIC (CONGESTIVE) HEART FAILURE SNOMED Code(s): 169995718 Comment: Pt with dietary indiscretion at home - high salt. No other concerning signs/symptoms for other cause of exacerbation. Likely that pHTN is from HF with contribution from DAIN (Group 2/3), last measured RVSP->~60, here 80 - continue furosemide 40mg IV bid; monitor BMP and replete lytes prn, add low dose spironolactone 12.5mg 11/27, and uptitrate to 25mg 11/28 - closely follow daily weights and Is & Os - Spoke with Vero - pt has follow up with echo scheduled for later this month-last dry weight is 240, and likely just failed outpt dieursis. - CPAP for DAIN should help remove fluid - titrate off O2 as tolerated (2) Atrial fibrillation Current Visit: Yes Status: Acute Code(s): I48.91 - UNSPECIFIED ATRIAL FIBRILLATION SNOMED Code(s): 74904299 Comment: AV paced - cont apixaban - on metoprolol succ 100mg daily (3) Hypertension Current Visit: Yes Status: Acute Code(s): I10 - ESSENTIAL (PRIMARY) HYPERTENSION SNOMED Code(s): 21012762 Comment: cont home beta hedy, adding spironolactone per outpt channel executive (4) Asthma Current Visit: Yes Status: Acute Code(s): J45.909 - UNSPECIFIED ASTHMA, UNCOMPLICATED SNOMED Code(s): 865255217 Comment: - home Dulera inhaler - cont nebs prn (5) Diabetes type 2, controlled Current Visit: Yes Status: Acute Code(s): E11.9 - TYPE 2 DIABETES MELLITUS WITHOUT COMPLICATIONS SNOMED Code(s): 38119951 Comment: Diet-controlled at home. A1c here 6.8%. - AISS with fingersticks while admitted - consider DC if low use - cont home atorva (seems this was for primary ppx) (6) Obstructive sleep apnea Current Visit: Yes Status: Acute Code(s): G47.33 - OBSTRUCTIVE SLEEP APNEA ( ADULT) (PEDIATRIC) SNOMED Code(s): 44397344 Comment: - will use home CPAP while admitted (7) Morbid obesity with BMI of 40.0-44.9, adult Current Visit: Yes Status: Acute Code(s): E66.01 - MORBID (SEVERE) OBESITY DUE TO EXCESS CALORIES; Z68.41 - BODY MASS INDEX (BMI) 40.0-44.9, ADULT SNOMED Code(s): 811575810 Comment: diet and exercise encouraged (8) DVT prophylaxis Current Visit: Yes Status: Acute Code(s): LIS0535 - SNOMED Code(s): 191009021 Comment: on DOAC for afib (9) Full code status Current Visit: Yes Status: Acute Code(s): Z78.9 - OTHER SPECIFIED HEALTH STATUS SNOMED Code(s): 548878643 Comment: Daughter Boo phone: [phone], updated today 11/27-she does expect daily calls Status and Disposition: Will continue IV furosemide until symptoms and volume status improve, has sig volume to go still. Consider home services ([employer] vs [facility]). Boo (daughter): wants to be updated with plan.
[2018-11-27] MEDS: Metoprolol Succinate XL TAB* 100 MG PO SCH (17:12)
[2018-11-27] MEDS: Allopurinol TAB* 100 MG PO SCH (17:12)
[2018-11-27] MEDS: Atorvastatin* 10 MG TAB PO SCH (17:12)
[2018-11-28] MEDS: Saline NASAL DROPS 0.65%* 1 DROP BTL BOTH NARES PRN (03:31)
[2018-11-28] MEDS ORDERED: hydrALAZINE IV* 20 MG/ML VIAL IV SLOW PU PRN (04:28)
[2018-11-28] MEDS ORDERED: diPHENhydraMINE IV* 50 MG in NS 0.9% 50 ML* 50 ML IVPB ONE (05:14)
[2018-11-28] MEDS ORDERED: methylPREDNISolone 125 MG* 2 ML VIAL IV ONE (05:15)
[2018-11-28] MEDS ORDERED: diPHENhydraMINE IV* 50 MG/ML 1 ml VIAL (BENADRYL) SLOW PUSH ONE (05:16)
--- NOTE | 2018-11-28 05:16 | PN ---
Hospitalist Progress Note Date of Service: 11/28/18 Called by RN about pt being flushed and SOB after dose of Hydralazine. Asked to repeat VS and possibly due to peripheral vasodilation w/hydralazine or an allergic reaction. Ordered Solumedrol and Benadryl as VS are repeated.
[2018-11-28 07:08] LABS: CO2 Carbon Dioxide 33 mmol/L (22-32); Calcium 9.6 mg/dL (8.6-10.3); Chloride 98 mmol/L (101-111); Magnesium 1.8 mg/dL (1.9-2.7); Sodium 143 mmol/L (135-145)
[2018-11-28 07:13] LABS: BUN/Creatinine Ratio 33.7 (8-20); Blood Urea Nitrogen 34 mg/dL (6-24); EGFR African American 65.2 (>60); EGFR Non-African American 53.9 (>60); Glucose 119 mg/dL (70-100)
[2018-11-28 07:24] LABS: Anion Gap 12 mmol/L (2-11)
[2018-11-28] MEDS: Furosemide IV* 10 MG/ML VIAL (40 MG) IV SLOW PU SCH ×2 (07:29→18:20)
[2018-11-28] MEDS: Insulin LISPRO* 1 UNITS UNIT SUBCUT SCH ×4 (08:28→22:23)
[2018-11-28] MEDS: Apixaban* 5 MG TAB PO SCH (08:28)
[2018-11-28] MEDS: Spironolactone TAB* 25 MG PO SCH (08:28)
[2018-11-28] MEDS: Multivitamins/Minerals TAB PO SCH (08:28)
[2018-11-28] MEDS: Mometasone/Formoter 200/5 MDI INH SCH ×2 (08:34→19:56)
[2018-11-28] MEDS: Albuterol/Ipratropium NEB.SOL* Albuterol 2.5 MG/Ipratropium 0.5 MG 3 ML INH PRN (08:34)
[2018-11-28] MEDS ORDERED: Albuterol/Ipratropium NEB.SOL* Albuterol 2.5 MG/Ipratropium 0.5 MG 3 ML ONE (11:52)
[2018-11-28] MEDS: Albuterol/Ipratropium NEB.SOL* Albuterol 2.5 MG/Ipratropium 0.5 MG 3 ML INH SCH ×4 (11:57→23:28)
[2018-11-28] MEDS ORDERED: methylPREDNISolone SOD 40 MG* 1 ML VIAL IV SCH (12:00)
--- NOTE | 2018-11-28 13:50 | CONSULT ---
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 She reports orthopnea also. She came to ER 11/23 for resp distress. She was initially admitted with what appeared to be acute CHF exaccerbation, bialteral pulmonary congestion, started on IV diuretics. She was maintained in NSR, continued on eliquis for AC. She was diuresed, feeling better. Overngiht she was given hydralazine for hypertension, then developed some flushing, though to be an allergic reaction but no change in BP or rashes. She developed resp distress afterward but no evidence of wheezing. She was hypoxic and started on 4 L NC. I was called because she had continued tachypnea. A CXR this morning demonstrated diffuse right sided haziness consistent with congestion and likely a large pleural effusion. She was transferred to ICU for possible NIV need. on Arrival, she is awake, alert, some use of acc muscle but able to give history. feeling she has sob+, no cp/n/v/abd pain. no fever/chills. no cough/ sputum. she confirms history and symptoms as above from admission. ROS: negative except for pertinent positives mentioned above. 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; 2 children, bahmanrgatpipe is daughter Boo Allergies: CATS Home Medications: Acetaminophen TAB* [Tylenol TAB*] 650 mg PO Q6H PRN 11/23/18 [History Confirmed 11/23/18] Albuterol inh POWDER (NF) [Proair Respiclick] 2 puff INH Q4HR PRN 11/23/18 [ History Confirmed 11/23/18] Allopurinol TAB* [Zyloprim 100 MG TAB*] 200 mg PO QPM 11/23/18 [History Confirmed 11/23/18] Amoxicillin PO (*) [Amoxicillin 500 MG CAP*] 2,000 mg PO ONCE PRN 11/23/18 [ History Confirmed 11/23/18] Apixaban* [Eliquis*] 5 mg PO BID 11/23/18 [History Confirmed 11/23/18] Calcium Carbonate/Vitamin D3 [Calcium 500 + Vit D Caplet] 1 tab PO BID 11/23/18 [History Confirmed 11/23/18] Desoximetasone [Topicort] 0.05 % TOPICAL BID PRN 11/23/18 [History Confirmed 04/06] Fluticasone-Salmeterol 250-50* [Advair Diskus 250-50*] 1 puff INH BID 11/23/18 [ History Confirmed 11/23/18] Lovastatin (NF) [Mevacor (NF)] 40 mg PO QPM 11/23/18 [History Confirmed 11/23/18 ] Metoprolol Succinate XL TAB* [Toprol XL TAB*] 100 mg PO QPM 11/23/18 [History Confirmed 11/23/18] Multivitamins/Minerals TAB* [Theragran/minerals TAB*] 1 tab PO DAILY 11/23/18 [ History Confirmed 11/23/18] Torsemide TAB* [Demadex*] 10 mg PO QAM 11/23/18 [History Confirmed 11/23/18] Tele: NSR Vitals: Vital Signs Temp 97.5 F 11/28/18 13:24 Pulse 89 11/28/18 13:24 Resp 25 11/28/18 13:24 BP 175/85 11/28/18 13:24 Pulse Ox 94 11/28/18 13:24 Intake & Output 11/27/18 11/28/18 11/28/18 18:59 06:59 18:59 Intake Total 1040 240 120 Output Total 500 500 300 Balance 540 -260 -180 Weight 111.039 kg 112.6 kg Intake: Oral 1040 240 120 Output: Urine 500 500 300 O2/Vent: NC 4 L -> NIV Infusions: heplock Current Medications: Acetaminophen (Tylenol Tab*) 650 mg PO Q6H PRN PRN Reason: FEVER/PAIN Last Admin: 11/24/18 11:32 Dose: 650 mg Albuterol/Ipratropium (Duoneb (Albuterol 2.5 Mg/Ipratropium 0.5 Mg)) 1 neb INH [id number] AWAKE [facility] Last Admin: 11/28/18 11:57 Dose: 1 neb Allopurinol (Zyloprim Tab*) 200 mg PO QPM [facility] Last Admin: 11/27/18 17:12 Dose: 200 mg Atorvastatin Calcium (Lipitor*) 10 mg PO QPM [facility]; Protocol Last Admin: 11/27/18 17:12 Dose: 10 mg Dextrose (D50w Syringe 50 Ml*) 12.5 gm IV PUSH .FOR FS < 60 - SS PRN PRN Reason: FS < 60 Furosemide (Lasix Iv*) 40 mg IV SLOW PU 0800,1700 [facility] Last Admin: 11/28/18 07:29 Dose: 40 mg Guaifenesin/Dextromethorphan (Robitussin Dm Sugar Free*) 10 ml PO Q6H PRN PRN Reason: Cough/phlegm Insulin Human Lispro (Humalog*) 0 units SUBCUT ACHS [facility]; Protocol Last Admin: 11/28/18 12:34 Dose: 3 units Methylprednisolone Sodium Succinate (Solu-Medrol 40 Mg) 40 mg IV Q8H [facility] Last Admin: 11/28/18 12:34 Dose: 40 mg Metoprolol Succinate (Toprol Xl Tab*) 100 mg PO QPM [facility] Last Admin: 11/27/18 17:12 Dose: 100 mg Mometasone Furoate/Formoterol Fumar (Dulera 200/5 Mdi*) 2 puff INH BID [facility] Last Admin: 11/28/18 08:34 Dose: 2 puff Multivitamins/Minerals (Theragran/Minerals Tab*) 1 tab PO DAILY [facility] Last Admin: 11/28/18 08:28 Dose: 1 tab Ondansetron HCl (Zofran Inj*) 4 mg IV Q6H PRN PRN Reason: NAUSEA Sodium Chloride (Sodium Chloride 0.65% Nasal Drops*) 1 drop BOTH NARES Q4H PRN PRN Reason: DRY SKIN Last Admin: 11/28/18 03:31 Dose: 1 drop Spironolactone (Aldactone Tab*) 25 mg PO DAILY [facility] Last Admin: 11/28/18 08:28 Dose: 25 mg Physical Exam: General: awake, alert, resp distress+, no diaphoresis Head: normocephalic, atraumatic HEENT: no pallor, no icterus, moist mucous membranes Neck: soft, supple, no jvd, no stridor CVS: normal rate, regular, no murmur Resp: bilateral air entry but diminished R>L, no RRW, mild acc muscle use Abdomen: soft, nontender, nondistended, BS+ Ext: pulses+, warm, no edema Skin: intact Neuro: awake, alert, orientedx3, moving all extremities, no gross focal deficit Labs: Laboratory Results - last 24 hr 11/27/18 11/27/18 11/28/18 16:09 19:37 06:03 Sodium 143 Potassium TNP Chloride 98 L Carbon Dioxide 33 H Anion Gap 12 H BUN 34 H Creatinine 1.01 H Est GFR ( Amer) 65.2 Est GFR (Non-Af Amer) 53.9 BUN/Creatinine Ratio 33.7 H Glucose 119 H POC Glucose (mg/dL) 190 H 194 H Calcium 9.6 Magnesium 1.8 L 11/28/18 11/28/18 11/28/18 07:20 08:00 11:07 Sodium Potassium 4.1 Chloride Carbon Dioxide Anion Gap BUN Creatinine Est GFR ( Amer) Est GFR (Non-Af Amer) BUN/Creatinine Ratio Glucose POC Glucose (mg/dL) 154 H 194 H Calcium Magnesium Imaging: cxr 11/28 - right sided large pleural effusion, congestion+ Assessment: 73y F w/pmhx of asthma, Afib, 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 She reports orthopnea also. She came to ER 11/23 for resp distress. She was initially admitted with what appeared to be acute CHF exaccerbation, bialteral pulmonary congestion, started on IV diuretics. She was maintained in NSR, continued on eliquis for AC. She was diuresed, feeling better. Overngiht she was given hydralazine for hypertension, then developed some flushing, though to be an allergic reaction but no change in BP or rashes. She developed resp distress afterward but no evidence of wheezing. She was hypoxic and started on 4 L NC. I was called because she had continued tachypnea. A CXR this morning demonstrated diffuse right sided haziness consistent with congestion and likely a large pleural effusion. She was transferred to ICU for possible NIV need. -Acute hypoxic respiratory failure -Large right pleural effusion -Acute decompensated LV diastolic heart failure -Cor Pulmonale -Pulmonary congestion Sleep apnea -Pulmonary Hypertension -TAO, improved Afib s/p PPM DM Plan: Neuro- awake/alert. delirium prec. asp prec CVS- -BP stable, HR stable -in NSR -hold eliquis for thoracentesis planned tomorrow -cont metoprolol -cont lasix 40mg IV BID for ongoign diuresis -cont aldactone -noted TTE earlier with LV diastolic dysfxn, RV dilated, elevated RVSP, septal flattening; may all be related to LV diastolic heart failure with combination of DAIN/asthma, unclear withotu RHC down the line. Resp- -on NC, starting NIV -CXR with large effusion on right, congestion+ -cont IV diuretics -We discussed large right effusion and need for drainage. she is currently on 4 L, mild tachypnea and some acc muscle use. Bilateral diminished BS. she was given eliquis dose this morning. Currently being placed on NIV. we discussed that if she feel better on NIV we may observe her the rest of the day and try for therapeutic thoracentesis in AM tomorrow due to her being on eliquis for AC and risk of bleeding, given her overall obese body habitus as well. -dec solumedrol to 40mg IV daily -cont bronchodilators ID- afebrile. wbc 7. nontoxic appearing. likely noninfectious. hold abx GI- NPO on NIV. trial of liquids if off later. Cardiac diet Renal- TAO from admission improved. K okay, no acidosis. Making urine. Cont lasix 40mg IV BID. Heme- hg stable, plt stable -hold eliquis (for AFib) for thoracentesis tomorrow Endo- Maintain BG<200, insulin protocol as needed. Noted hga1c 6.8 Musculsk- pressure ulcer prophylaxis. Bedrest. Wounds- none Nutrition- cardiac diet DVT prophylaxis: SCD; hold eliquis GI prophylaxis: none indicated Central Line: no Arterial Line: no Bacon Cathetor: no Disposition: Patient requires Critical Care/ICU for respiratory failure Patient Clinical Status: guarded Code Status: full code Total Critical Care time is 45 minutes, excluding procedures/teaching Nicolas Sarkar MD Cosmetic Surgeon (Electronically Signed)
[2018-11-28] MEDS ORDERED: Spironolactone TAB* 25 MG PO ONE (14:24)
--- NOTE | 2018-11-28 17:04 | PN ---
Subjective Date of Service: 11/28/18 Interval History: HOSPITALIST PROGRESS NOTE Patient seen and examined at bedside. Care reviewed and d/w Marcy Gordon RN. She states she was feeling better last night. Woke up around 3 AM and went to the bathroom and felt a little more dyspneic. BP was elevated and received Hydralazine IV at 4:46 and developed a "flushed" sensation and dyspnea got worse. Initially the impression was she was having an allergic reaction to Hydralazine and received Solumedrol, breathing treatments, but dyspnea persisted. Family History: Unchanged from Admission Social History: Unchanged from Admission Past Medical History: Unchanged from Admission Objective Active Medications: Acetaminophen (Tylenol Tab*) 650 mg PO Q6H PRN PRN Reason: FEVER/PAIN Last Admin: 11/24/18 11:32 Dose: 650 mg Albuterol/Ipratropium (Duoneb (Albuterol 2.5 Mg/Ipratropium 0.5 Mg)) 1 neb INH [id number] AWAKE [facility] Last Admin: 11/28/18 15:19 Dose: 1 neb Allopurinol (Zyloprim Tab*) 200 mg PO QPM [facility] Last Admin: 11/27/18 17:12 Dose: 200 mg Atorvastatin Calcium (Lipitor*) 10 mg PO QPM [facility]; Protocol Last Admin: 11/27/18 17:12 Dose: 10 mg Dextrose (D50w Syringe 50 Ml*) 12.5 gm IV PUSH .FOR FS < 60 - SS PRN PRN Reason: FS < 60 Furosemide (Lasix Iv*) 40 mg IV SLOW PU 0800,1700 [facility] Last Admin: 11/28/18 07:29 Dose: 40 mg Guaifenesin/Dextromethorphan (Robitussin Dm Sugar Free*) 10 ml PO Q6H PRN PRN Reason: Cough/phlegm Insulin Human Lispro (Humalog*) 0 units SUBCUT ACHS [facility]; Protocol Last Admin: 11/28/18 12:34 Dose: 3 units Methylprednisolone Sodium Succinate (Solu-Medrol 40 Mg) 40 mg IV DAILY [facility] Metoprolol Succinate (Toprol Xl Tab*) 100 mg PO QPM [facility] Last Admin: 11/27/18 17:12 Dose: 100 mg Mometasone Furoate/Formoterol Fumar (Dulera 200/5 Mdi*) 2 puff INH BID [facility] Last Admin: 11/28/18 08:34 Dose: 2 puff Multivitamins/Minerals (Theragran/Minerals Tab*) 1 tab PO DAILY [facility] Last Admin: 11/28/18 08:28 Dose: 1 tab Ondansetron HCl (Zofran Inj*) 4 mg IV Q6H PRN PRN Reason: NAUSEA Sodium Chloride (Sodium Chloride 0.65% Nasal Drops*) 1 drop BOTH NARES Q4H PRN PRN Reason: DRY SKIN Last Admin: 11/28/18 03:31 Dose: 1 drop Spironolactone (Aldactone Tab*) 25 mg PO DAILY [facility] Last Admin: 11/28/18 08:28 Dose: 25 mg Vital Signs - 8 hr 11/28/18 11/28/18 11/28/18 11:24 11:59 13:24 Temperature 97.7 F 97.5 F Pulse Rate 84 88 89 Respiratory 18 20 25 Rate Blood Pressure 170/82 175/85 (mmHg) O2 Sat by Pulse 96 94 94 Oximetry 11/28/18 11/28/18 11/28/18 13:27 13:46 14:00 Temperature Pulse Rate 89 86 86 Respiratory 29 21 Rate Blood Pressure 175/85 171/82 (mmHg) O2 Sat by Pulse 97 99 100 Oximetry 11/28/18 11/28/18 11/28/18 14:01 14:16 14:31 Temperature Pulse Rate 85 83 85 Respiratory 22 21 22 Rate Blood Pressure 163/76 144/67 144/77 (mmHg) O2 Sat by Pulse 100 99 98 Oximetry 11/28/18 11/28/18 11/28/18 14:46 15:00 15:01 Temperature Pulse Rate 79 81 81 Respiratory 17 19 19 Rate Blood Pressure 168/77 172/82 (mmHg) O2 Sat by Pulse 100 100 100 Oximetry 11/28/18 11/28/18 11/28/18 15:16 15:19 15:31 Temperature Pulse Rate 84 83 81 Respiratory 22 19 18 Rate Blood Pressure 174/85 158/91 (mmHg) O2 Sat by Pulse 100 100 100 Oximetry 11/28/18 11/28/18 11/28/18 15:46 16:00 16:01 Temperature Pulse Rate 80 78 78 Respiratory 19 20 21 Rate Blood Pressure 151/68 142/65 (mmHg) O2 Sat by Pulse 99 98 98 Oximetry 11/28/18 11/28/18 11/28/18 16:16 16:31 16:46 Temperature Pulse Rate 78 84 83 Respiratory 21 19 23 Rate Blood Pressure 151/69 174/136 167/91 (mmHg) O2 Sat by Pulse 98 100 100 Oximetry Oxygen Devices in Use Now: Nasal Cannula Appearance: Morbid obese lady sitting up in a chair in mild respiratory distress Eyes: No Scleral Icterus Ears/Nose/Mouth/Throat: Mucous Membranes Moist Neck: Trachea Midline Respiratory: Symmetrical Chest Expansion and Respiratory Effort, - - BS+ bilaterally with bilateral wheezing Cardiovascular: RRR - Normal S1 and S2 Abdominal: NL Sounds; No Tenderness; No Distention Neurological: Alert and Oriented x 3, NL Muscle Strength and Tone Result Diagrams: 11/27/18 05:54 11/28/18 08:00 Assess/Plan/Problems-Billing Assessment: 73yo F with HTN, HFpEF, 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 - Patient Problems (1) Acute hypoxemic respiratory failure Comment: - Multifactorial in the setting of CHF exacerbation, asthma exacerbation, possible allergic reaction, and large right pleural effusion. - Will transfer to ICU for possible NIPPV. - Critical care input requested. (2) Heart failure, diastolic, with acute decompensation Comment: - Secondary to dietary indiscretion at home - high salt. - Highest weight at home was 271 lbs, now down to 248. - Continue diuresis with furosemide 40mg IV bid; low dose spironolactone added after Dr Cam d/w Dr Pham. - Plan to hold Apixaban for thoracentesis tomorrow. (3) Atrial fibrillation Comment: - AV paced - Apixaban on hold for thoracentesis tomorrow. - on metoprolol succ 100mg daily (4) Asthma Comment: - Suspect mild exacerbation in the setting of possible allergic reaction. - Will add Solumedrol, but would taper it quickly. - Continue inhaled steroids and bronchodilators. (5) Diabetes type 2, controlled Comment: - Diet-controlled at home. A1c here 6.8%. - Continue FS with SS. (6) Obstructive sleep apnea Comment: - Continue CPAP while admitted (7) DVT prophylaxis Comment: - Apixaban on hold for thoracentesis in AM. - No SCDs in the setting of CHF. (8) Full code status Comment: Daughter Boo (who is a Systems Trainer) phone: [phone] Status and Disposition: Inpatient.
[2018-11-28] MEDS: Allopurinol TAB* 100 MG PO SCH (19:13)
[2018-11-28] MEDS: Atorvastatin* 10 MG TAB PO SCH (19:13)
[2018-11-28] MEDS: Metoprolol Succinate XL TAB* 100 MG PO SCH (19:13)
[2018-11-29] MEDS: Albuterol/Ipratropium NEB.SOL* Albuterol 2.5 MG/Ipratropium 0.5 MG 3 ML INH SCH ×4 (03:35→19:50)
[2018-11-29 05:40] LABS: Hematocrit 36 % (35-47); Hemoglobin 11.2 g/dl (12.0-16.0); Mean Corpuscular HGB Conc 32 g/dl (31-36); Mean Corpuscular Hemoglobin 30 pg (27-31); Mean Corpuscular Volume 94 fL (80-97); Mean Platelet Volume 9.5 fL (7.4-10.4); Platelet Count 170 10^3/ul (150-450); Red Blood Count 3.78 10^6/ul (4.00-5.40); Red Cell Distribution Width 16 % (10.5-15); White Blood Count 7.1 10^3/ul (3.5-10.8)
[2018-11-29 05:48] LABS: INR 2.07 (0.77-1.02)
[2018-11-29 05:56] LABS: BUN/Creatinine Ratio 33.7 (8-20); Calcium 9.4 mg/dL (8.6-10.3); EGFR Non-African American 52.1 (>60); Potassium 3.9 mmol/L (3.5-5.0)
[2018-11-29] MEDS ORDERED: Metolazone TAB* 5 MG PO ONE (07:23)
[2018-11-29] MEDS: Mometasone/Formoter 200/5 MDI INH SCH ×2 (07:53→19:50)
[2018-11-29] MEDS: Insulin LISPRO* 1 UNITS UNIT SUBCUT SCH ×4 (08:55→22:02)
[2018-11-29] MEDS ORDERED: methylPREDNISolone SOD 40 MG* 1 ML VIAL IV SCH (09:00)
--- NOTE | 2018-11-29 09:37 | PN ---
Progress Note - Progress Note Date of Service: 11/29/18 Note: Progress Note -- Critical Care 24 hour events -stable on NIV overnight; awake/alert. afebrile. denies any sob/cp/n/v/abd pain -states she feels better today -no resp distress objectively noticed Tele: NSR Vitals: Vital Signs Temp 97.4 F 11/29/18 07:58 Pulse 70 11/29/18 07:55 Resp 16 11/29/18 07:55 BP 123/61 11/29/18 06:00 Pulse Ox 98 11/29/18 07:55 Intake & Output 11/28/18 11/29/18 11/29/18 18:59 06:59 18:59 Intake Total 120 50 Output Total 300 1500 Balance -180 -1450 Weight 112.6 kg 111.9 kg Intake: Oral 120 50 Output: Urine 300 1500 O2/Vent: NIV 35% Infusions: heplock Current Medications: Acetaminophen (Tylenol Tab*) 650 mg PO Q6H PRN PRN Reason: FEVER/PAIN Last Admin: 11/24/18 11:32 Dose: 650 mg Albuterol/Ipratropium (Duoneb (Albuterol 2.5 Mg/Ipratropium 0.5 Mg)) 1 neb INH [id number] [facility] Allopurinol (Zyloprim Tab*) 200 mg PO QPM [facility] Last Admin: 11/28/18 19:13 Dose: 200 mg Atorvastatin Calcium (Lipitor*) 10 mg PO QPM [facility]; Protocol Last Admin: 11/28/18 19:13 Dose: 10 mg Dextrose (D50w Syringe 50 Ml*) 12.5 gm IV PUSH .FOR FS < 60 - SS PRN PRN Reason: FS < 60 Furosemide (Lasix Iv*) 20 mg IV SLOW PU DAILY [facility] Guaifenesin/Dextromethorphan (Robitussin Dm Sugar Free*) 10 ml PO Q6H PRN PRN Reason: Cough/phlegm Insulin Human Lispro (Humalog*) 0 units SUBCUT ACHS [facility]; Protocol Last Admin: 11/29/18 08:55 Dose: 2 units Methylprednisolone Sodium Succinate (Solu-Medrol 40 Mg) 20 mg IV DAILY [facility] Metoprolol Succinate (Toprol Xl Tab*) 100 mg PO QPM [facility] Last Admin: 11/28/18 19:13 Dose: 100 mg Mometasone Furoate/Formoterol Fumar (Dulera 200/5 Mdi*) 2 puff INH BID [facility] Last Admin: 11/29/18 07:53 Dose: 2 puff Multivitamins/Minerals (Theragran/Minerals Tab*) 1 tab PO DAILY [facility] Last Admin: 11/28/18 08:28 Dose: 1 tab Ondansetron HCl (Zofran Inj*) 4 mg IV Q6H PRN PRN Reason: NAUSEA Sodium Chloride (Sodium Chloride 0.65% Nasal Drops*) 1 drop BOTH NARES Q4H PRN PRN Reason: DRY SKIN Last Admin: 11/28/18 03:31 Dose: 1 drop Spironolactone (Aldactone Tab*) 25 mg PO DAILY [facility] Last Admin: 11/28/18 08:28 Dose: 25 mg Physical Exam: General: awake, alert, no resp distress, no diaphoresis Head: normocephalic, atraumatic HEENT: no pallor, no icterus, moist mucous membranes Neck: soft, supple, no jvd, no stridor CVS: normal rate, regular, no murmur Resp: bilateral air entry but diminished R>L, no RRW, no acc muscle use Abdomen: soft, nontender, nondistended, BS+ Ext: pulses+, warm, no edema Skin: intact Neuro: awake, alert, orientedx3, moving all extremities Labs: Laboratory Results - last 24 hr 11/28/18 11/28/18 11/28/18 11:07 19:18 22:15 WBC RBC Hgb Hct MCV MCH MCHC RDW Plt Count MPV INR (Anticoag Therapy) APTT Sodium Potassium Chloride Carbon Dioxide Anion Gap BUN Creatinine Est GFR ( Amer) Est GFR (Non-Af Amer) BUN/Creatinine Ratio Glucose POC Glucose (mg/dL) 194 H 221 H 203 H Calcium 11/29/18 11/29/18 11/29/18 05:20 05:20 05:20 WBC 7.1 RBC 3.78 L Hgb 11.2 L Hct 36 MCV 94 MCH 30 MCHC 32 RDW 16 H Plt Count 170 MPV 9.5 INR (Anticoag Therapy) 2.07 H APTT 36.0 Sodium 143 Potassium 3.9 Chloride 97 L Carbon Dioxide 39 H Anion Gap 7 BUN 35 H Creatinine 1.04 H Est GFR ( Amer) 63.0 Est GFR (Non-Af Amer) 52.1 BUN/Creatinine Ratio 33.7 H Glucose 149 H POC Glucose (mg/dL) Calcium 9.4 Imaging: cxr 11/28 - right sided large pleural effusion, congestion+ Assessment: 73y F w/pmhx of asthma, Afib, 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 She reports orthopnea also. She came to ER 11/23 for resp distress. She was initially admitted with what appeared to be acute CHF exaccerbation, bialteral pulmonary congestion, started on IV diuretics. She was maintained in NSR, continued on eliquis for AC. She was diuresed, feeling better. Overngiht she was given hydralazine for hypertension, then developed some flushing, though to be an allergic reaction but no change in BP or rashes. She developed resp distress afterward but no evidence of wheezing. She was hypoxic and started on 4 L NC. I was called because she had continued tachypnea. A CXR this morning demonstrated diffuse right sided haziness consistent with congestion and likely a large pleural effusion. She was transferred to ICU for possible NIV need. -Acute hypoxic respiratory failure -Large right pleural effusion -Acute decompensated LV diastolic heart failure -Cor Pulmonale -Pulmonary congestion Sleep apnea -Pulmonary Hypertension -TAO, improved Afib s/p PPM DM Plan: Neuro- awake/alert. delirium prec. asp prec CVS- -BP stable, HR stable -in NSR -holding eliquis -cont metoprolol -dec lasix 20mg IV daily; given metolazone 5mg x1 -cont aldactone -noted TTE earlier with LV diastolic dysfxn, RV dilated, elevated RVSP, septal flattening; may all be related to LV diastolic heart failure with combination of DAIN/asthma, unclear withotu RHC down the line. Resp- -on NIV, stable, feels comfortable -CXR 11/28 with large effusion on right, congestion+ -cont IV diuretics -plan for Right thoracentesis today for drainage of large effusion; eliquis last dose yesterday morning; has been off since -will send sample for cytology; given history fo Breast Ca in past also, may need CT chest after to eval for any underlying mass/consolidation -dec solumedrol to 20mg daily -cont bronchodilators ID- afebrile. wbc 7. nontoxic appearing. likely noninfectious. hold abx GI- NPO on NIV. trial of liquids. Cardiac diet Renal- TAO improved. K okay, no acidosis. Making urine. Dec lasix 20mg IV daily for rising Cr and Sodium. Heme- hg stable, plt stable -hold eliquis (for AFib) for thoracentesis Endo- Maintain BG<200, insulin protocol as needed. Noted hga1c 6.8 Musculsk- pressure ulcer prophylaxis. Bedrest. Wounds- none Nutrition- cardiac diet DVT prophylaxis: SCD; hold eliquis GI prophylaxis: none indicated Central Line: no Arterial Line: no Bacon Cathetor: no Disposition: Patient requires Critical Care/ICU for respiratory failure Patient Clinical Status: guarded Code Status: full code Total Critical Care time is 35 minutes, excluding procedures/teaching Nicolas Sarkar MD Land Leases And Rentals Manager (Electronically Signed)
[2018-11-29] MEDS ORDERED: Furosemide IV* 10 MG/ML VIAL (40 MG) ONE (09:42)
[2018-11-29] MEDS: Multivitamins/Minerals TAB PO SCH (09:45)
[2018-11-29] MEDS: Furosemide IV* 10 MG/ML VIAL (40 MG) IV SLOW PU SCH (09:45)
[2018-11-29] MEDS: Spironolactone TAB* 25 MG PO SCH (09:45)
[2018-11-29] MEDS: methylPREDNISolone SOD 40 MG* 1 ML VIAL IV SCH (09:45)
--- NOTE | 2018-11-29 12:12 | PN ---
Subjective Date of Service: 11/29/18 Interval History: HOSPITALIST PROGRESS NOTE Patient seen and examined at bedside. Case reviewed and d/w Mary Burn RN. She is much more comfortable today. Resting easily on BiPAP. Sleeping, but arousable to voice. Family History: Unchanged from Admission Social History: Unchanged from Admission Past Medical History: Unchanged from Admission Objective Active Medications: Acetaminophen (Tylenol Tab*) 650 mg PO Q6H PRN PRN Reason: FEVER/PAIN Last Admin: 11/24/18 11:32 Dose: 650 mg Albuterol/Ipratropium (Duoneb (Albuterol 2.5 Mg/Ipratropium 0.5 Mg)) 1 neb INH [id number] AWAKE [facility] Allopurinol (Zyloprim Tab*) 200 mg PO QPM [facility] Last Admin: 11/28/18 19:13 Dose: 200 mg Atorvastatin Calcium (Lipitor*) 10 mg PO QPM [facility]; Protocol Last Admin: 11/28/18 19:13 Dose: 10 mg Dextrose (D50w Syringe 50 Ml*) 12.5 gm IV PUSH .FOR FS < 60 - SS PRN PRN Reason: FS < 60 Furosemide (Lasix Iv*) 20 mg IV SLOW PU DAILY [facility] Guaifenesin/Dextromethorphan (Robitussin Dm Sugar Free*) 10 ml PO Q6H PRN PRN Reason: Cough/phlegm Insulin Human Lispro (Humalog*) 0 units SUBCUT ACHS [facility]; Protocol Last Admin: 11/29/18 08:55 Dose: 2 units Methylprednisolone Sodium Succinate (Solu-Medrol 40 Mg) 20 mg IV DAILY [facility] Last Admin: 11/29/18 09:45 Dose: 20 mg Metoprolol Succinate (Toprol Xl Tab*) 100 mg PO QPM [facility] Last Admin: 11/28/18 19:13 Dose: 100 mg Mometasone Furoate/Formoterol Fumar (Dulera 200/5 Mdi*) 2 puff INH BID [facility] Last Admin: 11/29/18 07:53 Dose: 2 puff Multivitamins/Minerals (Theragran/Minerals Tab*) 1 tab PO DAILY [facility] Last Admin: 11/29/18 09:45 Dose: 1 tab Ondansetron HCl (Zofran Inj*) 4 mg IV Q6H PRN PRN Reason: NAUSEA Sodium Chloride (Sodium Chloride 0.65% Nasal Drops*) 1 drop BOTH NARES Q4H PRN PRN Reason: DRY SKIN Last Admin: 11/28/18 03:31 Dose: 1 drop Spironolactone (Aldactone Tab*) 25 mg PO DAILY [facility] Last Admin: 11/29/18 09:45 Dose: 25 mg Vital Signs - 8 hr 11/29/18 11/29/18 11/29/18 05:00 05:59 06:00 Temperature Pulse Rate 70 70 Respiratory 15 20 19 Rate Blood Pressure 144/78 123/61 (mmHg) O2 Sat by Pulse 97 95 Oximetry 11/29/18 11/29/18 07:55 07:58 Temperature 97.4 F Pulse Rate 70 Respiratory 16 Rate Blood Pressure (mmHg) O2 Sat by Pulse 98 Oximetry Oxygen Devices in Use Now: BiPAP Appearance: Elderly obese lady lying in bed in NAD Eyes: No Scleral Icterus Ears/Nose/Mouth/Throat: Mucous Membranes Moist Neck: Trachea Midline Respiratory: Symmetrical Chest Expansion and Respiratory Effort, - - BS+ bilaterally, diminished right base, no wheezing Cardiovascular: RRR - Normal S1 and S2 Abdominal: NL Sounds; No Tenderness; No Distention Neurological: Alert and Oriented x 3, NL Muscle Strength and Tone Result Diagrams: 11/29/18 05:20 11/29/18 05:20 Assess/Plan/Problems-Billing Assessment: 73yo F with HTN, HFpEF, 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 - Patient Problems (1) Acute hypoxemic respiratory failure Comment: - Multifactorial in the setting of CHF exacerbation, asthma exacerbation, possible allergic reaction, and large right pleural effusion. - Critical care input appreciated - plan for thoracentesis today. - Continue BiPAP. (2) Heart failure, diastolic, with acute decompensation Comment: - Secondary to dietary indiscretion at home - high salt. - Highest weight at home was 271 lbs, now down to 246. - Continue diuresis. - Apixaban on hold for thoracentesis. (3) Atrial fibrillation Comment: - AV paced - Apixaban on hold for thoracentesis . - Continue metoprolol succinate 100mg/daily. (4) Asthma Comment: - Suspect mild exacerbation in the setting of possible allergic reaction. - Taper Solumedrol. - Continue inhaled steroids and bronchodilators. (5) Diabetes type 2, controlled Comment: - Diet-controlled at home. A1c 6.8%. - Continue FS with SS. (6) Obstructive sleep apnea Comment: - Continue CPAP (BiPAP for now). (7) DVT prophylaxis Comment: - Apixaban on hold for thoracentesis. - SCDs as per ICU. (8) Full code status Comment: Daughter Boo (who is a Retail Solar Advisor) phone: [phone] Status and Disposition: Inpatient.
[2018-11-29 14:00] LABS: Body Fluid Source Pleural Fluid
--- NOTE | 2018-11-29 14:24 | CONSULT ---
Subjective Date of Service: 11/29/18 Interval History: Ms. Ovalles is a 75 yo female with PMH significant for HTN, HFpEF, pHTN ( group 2/3), DM2 on diet control, bioprosthetic AV, afib on AC, SSS with PPM, morbid obesity with BMI 41, DAIN, and asthma who presented to the the emergency room for complaints of shortness of breath and was found to have a CHF exacerbation. She was noted to have a possible wound on her right gluteal fold by [facility] [place] and a wound consult was requested. Family History: Unchanged from Admission Social History: Unchanged from Admission Past Medical History: Unchanged from Admission Review of Systems - Measurements Intake and Output: Intake and Output Last 24 Hours 11/27/18 11/28/18 11/29/18 11/30/18 06:59 06:59 06:59 06:59 Intake Total 1318 1280 170 Output Total 1850 1000 1800 Balance -532 280 -1630 Weight 248 lb 1.6 oz 244 lb 12.8 oz 246 lb 11.156 oz Intake: Oral 1318 1280 170 Output: Urine 1850 1000 1800 - Review of Systems Constitutional Symptoms: Negative: Fever, Other - Chills Dermatology: Positive: Other - Discomfort to her right buttock Objective Active Medications: Acetaminophen (Tylenol Tab*) 650 mg PO Q6H PRN Reason: FEVER/PAIN Albuterol/Ipratropium (Duoneb (Albuterol 2.5 Mg/Ipratropium 0.5 Mg)) 1 neb INH [id number] AWAKE [facility] Allopurinol (Zyloprim Tab*) 200 mg PO QPM [facility] Atorvastatin Calcium (Lipitor*) 10 mg PO QPM [facility]; Protocol Dextrose (D50w Syringe 50 Ml*) 12.5 gm IV PUSH .FOR FS < 60 - SS PRN Reason: FS < 60 Furosemide (Lasix Iv*) 20 mg IV SLOW PU DAILY [facility] Guaifenesin/Dextromethorphan (Robitussin Dm Sugar Free*) 10 ml PO Q6H PRN Reason: Cough/phlegm Insulin Human Lispro (Humalog*) 0 units SUBCUT ACHS [facility]; Protocol Methylprednisolone Sodium Succinate (Solu-Medrol 40 Mg) 20 mg IV DAILY [facility] Metoprolol Succinate (Toprol Xl Tab*) 100 mg PO QPM [facility] Mometasone Furoate/Formoterol Fumar (Dulera 200/5 Mdi*) 2 puff INH BID [facility] Multivitamins/Minerals (Theragran/Minerals Tab*) 1 tab PO DAILY [facility] Ondansetron HCl (Zofran Inj*) 4 mg IV Q6H PRN Reason: NAUSEA Sodium Chloride (Sodium Chloride 0.65% Nasal Drops*) 1 drop BOTH NARES Q4H PRN Spironolactone (Aldactone Tab*) 25 mg PO DAILY [facility] Vital Signs - 8 hr 11/29/18 11/29/18 11/29/18 07:55 07:58 12:00 Temperature 97.4 F 97.9 F Pulse Rate 70 Respiratory 16 Rate O2 Sat by Pulse 98 Oximetry Oxygen Devices in Use Now: BiPAP Appearance: NAD, laying in bed Skin: - - see skin note below Neurological: Alert and Oriented x 3 Result Diagrams: 11/29/18 05:20 11/30/18 05:19 Microbiology and Other Data: Microbiology 11/28/18 14:58 Nasal Screen MRSA (PCR) - Final Nasal Mrsa Not Detected Skin Deviation Note - Skin Deviation Findings Left gluteal fold - 0.7 cm x 1 cm x 0 cm. The area is raised with a purplish discoloration. There is no open skin noted, no drainage. The surrounding skin is intact, no erythema. Assessment/Plan: Ms. Ovalles is a 73yo F with PMH sifnigicant for HTN, HFpEF, pHTN (group 2/3) , DM2 on diet control, bioprosthetic AV, afib on AC, SSS with PPM, morbid obesity with BMI 41, DAIN, and asthma who presented to the the emergency room for complaints of shortness of breath and was found to have a CHF exacerbation. She was noted to have an area of concern for skin breakdown to her left gluteal fold. 1. Left gluteal fold lesion. There is purplish discoloration to the area, but no open skin noted. Suspect this is a DTI vs healing pressure injury vs other skin lesion. She reports discomfort at the site. Apply barrier cream to protect the area. Frequent Turn and Repositioning 2. Diabetes mellitus. HgA1C 6.8. Continue to maintain good glycemic control. 3. Morbid obesity. BMI ~ 41 4. Diet. Heart Healthy, consistent carbohydrate 5. Code Status. Full code 6. Disposition. Disposition per primary medicine team TIME SPENT: Time for this wound consultation was 20 minutes, and 10 minutes was spent with the patient discussing past medical history, and assessing, measuring, and photographing the wound. Wound Problem/Plan Is Patient a Wound Clinic Patient: No Attending: Nilsa Barry
[2018-11-29 14:37] LABS: Body Fluid Mono 25 %; Body Fluid Other Cells 4
--- NOTE | 2018-11-29 15:05 | PN ---
Progress Note - Progress Note Date of Service: 11/29/18 Note: Thoracentesis Procedure Note Indication: large right pleural effusion Diagnosis: acute hypoxic respiratory failure, Acute decompensated LV diastolic heart failure, large right pleural effusion Performed by: Dr Nicolas Sarkar MD Consent: Informed ; placed in bedside chart Risks and benefits of procedure, including but not limited to hemorrhage, pneumothorax, broncho/pulm fistula, infection were discussed. [place] Protocol: Time-out was performed and the correct patient and site were verified -Previous imaging and lab work (coags/platelets), medications were reviewed. -Full sterile precautions with Chlorhexidine/full drapes/gowns/gloves were utilized. -Ultrasound was used to visualize the appropriate intercostal space for access. -Right 6th-7th intercostal space was marked, SC lidocaine used for local anesthesia. -18 gauge needle was used to enter pleural space, while avoid neuro/vasc bundle. Entry into pleural space confirmed with return of serosanguinous fluid, and drainage cathetor was passed into space with good return of fluid to check confirmation -Fluid was drained in amount of 2150 cc -No immediate complications or hemodynamic instability during drainage noted -Cathetor was removed after drainage and dressing applied to chest wall site -Specimen/Fluid sent for cell count/cytology/gram stain/culture and other indicated lab analysis Patient tolerated procedure well, no immediate complications noted. EBL - none Post Procedure CXR: Pending Nicolas Sarkar MD [facility] [employer] (Electronically Signed)
[2018-11-29] MEDS: Metoprolol Succinate XL TAB* 100 MG PO SCH (18:06)
[2018-11-29] MEDS: Atorvastatin* 10 MG TAB PO SCH (18:07)
[2018-11-29] MEDS: Allopurinol TAB* 100 MG PO SCH (18:07)
[2018-11-30] MEDS: Albuterol/Ipratropium NEB.SOL* Albuterol 2.5 MG/Ipratropium 0.5 MG 3 ML INH SCH ×4 (01:11→19:23)
[2018-11-30 06:09] LABS: BUN/Creatinine Ratio 42.1 (8-20); Calcium 9.2 mg/dL (8.6-10.3); EGFR African American 56.7 (>60); EGFR Non-African American 46.9 (>60); Potassium 4.2 mmol/L (3.5-5.0)
[2018-11-30] MEDS: Mometasone/Formoter 200/5 MDI INH SCH ×2 (08:32→19:23)
[2018-11-30] MEDS ORDERED: Furosemide IV* 10 MG/ML 2 ML VIAL (20 MG) IV SLOW PU SCH (09:00)
[2018-11-30] MEDS: Insulin LISPRO* 1 UNITS UNIT SUBCUT SCH ×4 (09:08→20:56)
[2018-11-30] MEDS: Spironolactone TAB* 25 MG PO SCH (09:09)
[2018-11-30] MEDS: Multivitamins/Minerals TAB PO SCH (09:09)
[2018-11-30] MEDS: methylPREDNISolone SOD 40 MG* 1 ML VIAL IV SCH (09:09)
--- NOTE | 2018-11-30 10:59 | PN ---
Progress Note - Progress Note Date of Service: 11/30/18 Note: Progress Note -- Critical Care 24 hour events -s/p thoracentesis 11/29 -on NC, cpap at night; feels good now. cough+, mild sputum -afebrile, no SOB/n/v/cp Tele: NSR Vitals: Vital Signs Temp 97.6 F 11/30/18 04:00 Pulse 70 11/30/18 07:37 Resp 17 11/30/18 07:37 BP 134/70 11/30/18 06:00 Pulse Ox 96 11/30/18 07:37 Intake & Output 11/29/18 11/30/18 11/30/18 18:59 06:59 18:59 Intake Total 120 Output Total 1900 300 Balance -1900 -180 Weight 108.6 kg Intake: IV Fluids 0 magnesium\ 0 Oral 120 Output: Urine 1900 300 Other: Estimated Stool Amount Medium O2/Vent: NC 3-4L Infusions: heplock Current Medications: Acetaminophen (Tylenol Tab*) 650 mg PO Q6H PRN PRN Reason: FEVER/PAIN Last Admin: 11/24/18 11:32 Dose: 650 mg Albuterol/Ipratropium (Duoneb (Albuterol 2.5 Mg/Ipratropium 0.5 Mg)) 1 neb INH [id number] AWAKE [facility] Last Admin: 11/30/18 07:35 Dose: 1 neb Allopurinol (Zyloprim Tab*) 200 mg PO QPM [facility] Last Admin: 11/29/18 18:07 Dose: 200 mg Atorvastatin Calcium (Lipitor*) 10 mg PO QPM [facility]; Protocol Last Admin: 11/29/18 18:07 Dose: 10 mg Dextrose (D50w Syringe 50 Ml*) 12.5 gm IV PUSH .FOR FS < 60 - SS PRN PRN Reason: FS < 60 Guaifenesin/Dextromethorphan (Robitussin Dm Sugar Free*) 10 ml PO Q6H PRN PRN Reason: Cough/phlegm Insulin Human Lispro (Humalog*) 0 units SUBCUT ACHS [facility]; Protocol Last Admin: 11/30/18 09:08 Dose: 3 units Methylprednisolone Sodium Succinate (Solu-Medrol 40 Mg) 20 mg IV DAILY [facility] Last Admin: 11/30/18 09:09 Dose: 20 mg Metoprolol Succinate (Toprol Xl Tab*) 100 mg PO QPM [facility] Last Admin: 11/29/18 18:06 Dose: 100 mg Mometasone Furoate/Formoterol Fumar (Dulera 200/5 Mdi*) 2 puff INH BID [facility] Last Admin: 11/30/18 08:32 Dose: 2 puff Multivitamins/Minerals (Theragran/Minerals Tab*) 1 tab PO DAILY [facility] Last Admin: 11/30/18 09:09 Dose: 1 tab Ondansetron HCl (Zofran Inj*) 4 mg IV Q6H PRN PRN Reason: NAUSEA Sodium Chloride (Sodium Chloride 0.65% Nasal Drops*) 1 drop BOTH NARES Q4H PRN PRN Reason: DRY SKIN Last Admin: 11/28/18 03:31 Dose: 1 drop Spironolactone (Aldactone Tab*) 25 mg PO DAILY [facility] Last Admin: 11/30/18 09:09 Dose: 25 mg Physical Exam: Constitutional: awake, alert, no distress, no diaphoresis Head: normocephalic, atraumatic Eyes: no pallor, no icterus ENT: moist mucous membranes Neck: soft, supple, no jvd, no stridor CVS: normal rate, regular, no murmur Resp: bilateral air entry, some decreased BS on right base, no rhales/wheeze/ rhonchi, no acc muscle use Abdomen/GI: soft, nontender, nondistended, BS+ Ext/Msk: warm, pulses+, no edema Skin: intact, warm Neuro: awake, alert, orientedx3, moving all extremities Labs: Laboratory Results - last 24 hr 11/29/18 11/29/18 11/29/18 08:31 12:39 13:05 Sodium Potassium Chloride Carbon Dioxide Anion Gap BUN Creatinine Est GFR ( Amer) Est GFR (Non-Af Amer) BUN/Creatinine Ratio Glucose POC Glucose (mg/dL) 175 H 142 H Calcium Fluid Source Pleural fluid Fluid Volume 8 Fluid Color [place]a Fluid Appearance Cloudy Fluid WBC 590 Fluid RBC 49709 Fluid Tot Cell Count 100 Fluid Neutrophils 19 Fluid Lymphocytes 56 Fluid Monocytes 25 Fluid Other Cells 4 Fluid Cell Count Rvw By 11/29/18 11/29/18 11/30/18 17:55 21:50 05:19 Sodium 139 Potassium 4.2 Chloride 96 L Carbon Dioxide 40 H Anion Gap 3 BUN 48 H Creatinine 1.14 H Est GFR ( Amer) 56.7 Est GFR (Non-Af Amer) 46.9 BUN/Creatinine Ratio 42.1 H Glucose 150 H POC Glucose (mg/dL) 173 H 210 H Calcium 9.2 Fluid Source Fluid Volume Fluid Color Fluid Appearance Fluid WBC Fluid RBC Fluid Tot Cell Count Fluid Neutrophils Fluid Lymphocytes Fluid Monocytes Fluid Other Cells Fluid Cell Count Rvw By Imaging: cxr 11/28 - right sided large pleural effusion, congestion+ cxr 11/29 - effusion resolved, RLL consolidation cxr 11/30 - small effusion, RLL consolidation+ Assessment: 73y F w/pmhx of asthma, Afib, 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 She reports orthopnea also. She came to ER 11/23 for resp distress. She was initially admitted with what appeared to be acute CHF exaccerbation, bialteral pulmonary congestion, started on IV diuretics. She was maintained in NSR, continued on eliquis for AC. She was diuresed, feeling better. Overngiht she was given hydralazine for hypertension, then developed some flushing, though to be an allergic reaction but no change in BP or rashes. She developed resp distress afterward but no evidence of wheezing. She was hypoxic and started on 4 L NC. I was called because she had continued tachypnea. A CXR this morning demonstrated diffuse right sided haziness consistent with congestion and likely a large pleural effusion. She was transferred to ICU for possible NIV need. 11/29 - right thoracentesis -Acute hypoxic respiratory failure, improved -Large right pleural effusion; s/p right thor 11/29 -right lower lobe consolidation+ -Acute decompensated LV diastolic heart failure -Cor Pulmonale -Pulmonary congestion Sleep apnea -Pulmonary Hypertension -TAO, improved Afib s/p PPM DM Plan: Neuro- awake/alert. delirium prec. asp prec CVS- -BP stable, HR stable -in NSR -restart eliquis -cont metoprolol -hold lasix, restart tuesday 20mg daily -cont aldactone -noted TTE earlier with LV diastolic dysfxn, RV dilated, elevated RVSP, septal flattening; may all be related to LV diastolic heart failure with combination of DAIN/asthma, unclear withotu RHC down the line. Resp- -on NC 3-4L; no distress -cont nighttime cpap for DAIN -CXR 11/30 with small right effusion but right LL consolidation+ -nontoxic signs, wbc normal, no fever; cough+, mild sputum -send sputum culture if able -?Abx need -IV diuretics as needed -thora cx pending; no organisms; cell counts/glucose seems to be transudative, lymphs, but bloody tap due to serosang etiology - solumedrol to 20mg daily for 1 more day -cont bronchodilators ID- afebrile. wbc 7. nontoxic appearing. likely noninfectious. hold abx -cxr 11/30 with RLL consolidation; nontoxic signs of infection GI- cardiac diet Renal- TAO, Cr up today. overall neg balance. hold lasix till tuesday. K okay, no acidosis. Making urine. Heme- hg stable, plt stable -restart eliquis (for AFib) for thoracentesis Endo- Maintain BG<200, insulin protocol as needed. Noted hga1c 6.8 Musculsk- pressure ulcer prophylaxis. oob to chair Wounds- none Nutrition- cardiac diet DVT prophylaxis: SCD; restart eliquis GI prophylaxis: none indicated Central Line: no Arterial Line: no Bacon Cathetor: no Disposition: Improved; may be stable for transfer to medical floor later today Patient Clinical Status: stable Code Status: full code Nicolas Sarkar MD [employer] Work[employer] (Electronically Signed)
[2018-11-30] MEDS: Apixaban* 5 MG TAB PO SCH ×2 (15:16→20:56)
[2018-11-30] MEDS: Allopurinol TAB* 100 MG PO SCH (18:00)
[2018-11-30] MEDS: Metoprolol Succinate XL TAB* 100 MG PO SCH (18:00)
[2018-11-30] MEDS: Atorvastatin* 10 MG TAB PO SCH (18:00)
[2018-11-30 22:01] LABS: Lactate Dehydrogenase, BF 139 U/L
[2018-12-01] MEDS: Albuterol/Ipratropium NEB.SOL* Albuterol 2.5 MG/Ipratropium 0.5 MG 3 ML INH SCH ×3 (00:57→13:23)
[2018-12-01] MEDS: Mometasone/Formoter 200/5 MDI INH SCH ×2 (08:07→21:14)
[2018-12-01] MEDS: Insulin LISPRO* 1 UNITS UNIT SUBCUT SCH ×4 (08:50→20:35)
[2018-12-01] MEDS: Apixaban* 5 MG TAB PO SCH ×2 (09:17→20:35)
[2018-12-01] MEDS: Multivitamins/Minerals TAB PO SCH (09:17)
[2018-12-01] MEDS: Spironolactone TAB* 25 MG PO SCH (09:17)
[2018-12-01] MEDS: methylPREDNISolone SOD 40 MG* 1 ML VIAL IV SCH (09:18)
[2018-12-01] MEDS: Torsemide TAB* 20 MG PO SCH (12:36)
[2018-12-01] MEDS ORDERED: Albuterol/Ipratropium NEB.SOL* Albuterol 2.5 MG/Ipratropium 0.5 MG 3 ML INH PRN (13:22)
--- NOTE | 2018-12-01 15:00 | PN ---
Subjective Date of Service: 12/01/18 Interval History: HOSPITALIST PROGRESS NOTE Patient seen and examined at bedside. Care reviewed and d/w Regina Harman RN. She feels much better today, breathing is close to baseline. Family History: Unchanged from Admission Social History: Unchanged from Admission Past Medical History: Unchanged from Admission Objective Active Medications: Acetaminophen (Tylenol Tab*) 650 mg PO Q6H PRN PRN Reason: FEVER/PAIN Last Admin: 11/24/18 11:32 Dose: 650 mg Albuterol/Ipratropium (Duoneb (Albuterol 2.5 Mg/Ipratropium 0.5 Mg)) 1 neb INH [id number] AWAKE PRN PRN Reason: SOB/WHEEZING Allopurinol (Zyloprim Tab*) 200 mg PO QPM [facility] Last Admin: 11/30/18 18:00 Dose: 200 mg Apixaban (Eliquis*) 5 mg PO BID [facility] Last Admin: 12/01/18 09:17 Dose: 5 mg Atorvastatin Calcium (Lipitor*) 10 mg PO QPM [facility]; Protocol Last Admin: 11/30/18 18:00 Dose: 10 mg Dextrose (D50w Syringe 50 Ml*) 12.5 gm IV PUSH .FOR FS < 60 - SS PRN PRN Reason: FS < 60 Guaifenesin/Dextromethorphan (Robitussin Dm Sugar Free*) 10 ml PO Q6H PRN PRN Reason: Cough/phlegm Insulin Human Lispro (Humalog*) 0 units SUBCUT ACHS [facility]; Protocol Last Admin: 12/01/18 12:36 Dose: 3 units Methylprednisolone Sodium Succinate (Solu-Medrol 40 Mg) 20 mg IV DAILY [facility] Stop: 12/02/18 08:59 Last Admin: 12/01/18 09:18 Dose: 20 mg Metoprolol Succinate (Toprol Xl Tab*) 100 mg PO QPM [facility] Last Admin: 11/30/18 18:00 Dose: 100 mg Mometasone Furoate/Formoterol Fumar (Dulera 200/5 Mdi*) 2 puff INH BID [facility] Last Admin: 12/01/18 08:07 Dose: 2 puff Multivitamins/Minerals (Theragran/Minerals Tab*) 1 tab PO DAILY [facility] Last Admin: 12/01/18 09:17 Dose: 1 tab Ondansetron HCl (Zofran Inj*) 4 mg IV Q6H PRN PRN Reason: NAUSEA Sodium Chloride (Sodium Chloride 0.65% Nasal Drops*) 1 drop BOTH NARES Q4H PRN PRN Reason: DRY SKIN Last Admin: 11/28/18 03:31 Dose: 1 drop Spironolactone (Aldactone Tab*) 25 mg PO DAILY [facility] Last Admin: 12/01/18 09:17 Dose: 25 mg Torsemide (Demadex*) 10 mg PO DAILY [facility] Last Admin: 12/01/18 12:36 Dose: 10 mg Vital Signs - 8 hr 12/01/18 12/01/18 12/01/18 08:00 08:17 09:54 Pulse Rate 70 72 Respiratory 18 18 18 Rate O2 Sat by Pulse 98 98 Oximetry 12/01/18 14:27 Pulse Rate Respiratory Rate O2 Sat by Pulse 93 Oximetry Oxygen Devices in Use Now: Nasal Cannula Appearance: Elderly lady sitting in a chair in [facility]. 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 - Patient Problems (1) Acute hypoxemic respiratory failure Comment: - Multifactorial in the setting of CHF exacerbation, asthma exacerbation, possible allergic reaction, and large right pleural effusion s/p thoracentesis. - Much improved. (2) Heart failure, diastolic, with acute decompensation Comment: - Secondary to dietary indiscretion at home - high salt. - Highest weight at home was 271 lbs, now down to 240. - Resume Torsemide. (3) Atrial fibrillation Comment: - AV paced - Continue metoprolol succinate 100mg/daily and Apixaban. (4) Asthma Comment: - Suspect mild exacerbation in the setting of possible allergic reaction. - Taper Solumedrol. - Continue inhaled steroids and bronchodilators. (5) Diabetes type 2, controlled Comment: - Diet-controlled at home. A1c 6.8%. - Continue FS with SS. (6) Obstructive sleep apnea Comment: - Continue CPAP. (7) DVT prophylaxis Comment: - Apixaban. (8) Full code status Comment: Daughter Boo (who is a Undergraduate Internship) phone: [phone] called and updated. Status and Disposition: Inpatient.
[2018-12-01] MEDS: Atorvastatin* 10 MG TAB PO SCH (17:25)
[2018-12-01] MEDS: Metoprolol Succinate XL TAB* 100 MG PO SCH (17:25)
[2018-12-01] MEDS: Allopurinol TAB* 100 MG PO SCH (17:25)
[2018-12-02] MEDS ORDERED: Furosemide IV* 10 MG/ML 2 ML VIAL (20 MG) IV SLOW PU SCH (09:00)
[2018-12-02] MEDS: Mometasone/Formoter 200/5 MDI INH SCH ×2 (09:03→19:46)
[2018-12-02] MEDS: Losartan TAB* 25 MG PO SCH ×2 (09:10→09:14)
[2018-12-02] MEDS: Insulin LISPRO* 1 UNITS UNIT SUBCUT SCH ×4 (09:13→20:40)
[2018-12-02] MEDS: Apixaban* 5 MG TAB PO SCH ×2 (09:14→20:41)
[2018-12-02] MEDS: Torsemide TAB* 20 MG PO SCH (09:14)
[2018-12-02] MEDS: Spironolactone TAB* 25 MG PO SCH (09:14)
[2018-12-02] MEDS: predniSONE TAB* 20 MG PO SCH (09:14)
[2018-12-02] MEDS: Multivitamins/Minerals TAB PO SCH (09:14)
--- NOTE | 2018-12-02 13:11 | PN ---
Subjective Date of Service: 12/02/18 Interval History: HOSPITALIST PROGRESS NOTE Patient seen and examined at bedside. Care reviewed and d/w Roodlfo Benavides RN. She feels more dyspneic today. Feels ok at rest, but more shortness of breath with minimal exertion. Family History: Unchanged from Admission Social History: Unchanged from Admission Past Medical History: Unchanged from Admission Objective Active Medications: Acetaminophen (Tylenol Tab*) 650 mg PO Q6H PRN PRN Reason: FEVER/PAIN Last Admin: 11/24/18 11:32 Dose: 650 mg Albuterol/Ipratropium (Duoneb (Albuterol 2.5 Mg/Ipratropium 0.5 Mg)) 1 neb INH [id number] AWAKE PRN PRN Reason: SOB/WHEEZING Allopurinol (Zyloprim Tab*) 200 mg PO QPM [facility] Last Admin: 12/01/18 17:25 Dose: 200 mg Apixaban (Eliquis*) 5 mg PO BID [facility] Last Admin: 12/02/18 09:14 Dose: 5 mg Atorvastatin Calcium (Lipitor*) 10 mg PO QPM [facility]; Protocol Last Admin: 12/01/18 17:25 Dose: 10 mg Dextrose (D50w Syringe 50 Ml*) 12.5 gm IV PUSH .FOR FS < 60 - SS PRN PRN Reason: FS < 60 Guaifenesin/Dextromethorphan (Robitussin Dm Sugar Free*) 10 ml PO Q6H PRN PRN Reason: Cough/phlegm Insulin Human Lispro (Humalog*) 0 units SUBCUT ACHS [facility]; Protocol Last Admin: 12/02/18 12:33 Dose: 3 units Losartan Potassium (Cozaar Tab*) 25 mg PO DAILY [facility] Last Admin: 12/02/18 09:14 Dose: 25 mg Metoprolol Succinate (Toprol Xl Tab*) 100 mg PO QPM [facility] Last Admin: 12/01/18 17:25 Dose: 100 mg Mometasone Furoate/Formoterol Fumar (Dulera 200/5 Mdi*) 2 puff INH BID [facility] Last Admin: 12/02/18 09:03 Dose: 2 puff Multivitamins/Minerals (Theragran/Minerals Tab*) 1 tab PO DAILY [facility] Last Admin: 12/02/18 09:14 Dose: 1 tab Ondansetron HCl (Zofran Inj*) 4 mg IV Q6H PRN PRN Reason: NAUSEA Prednisone (Deltasone Tab*) 20 mg PO DAILY [facility] Last Admin: 12/02/18 09:14 Dose: 20 mg Sodium Chloride (Sodium Chloride 0.65% Nasal Drops*) 1 drop BOTH NARES Q4H PRN PRN Reason: DRY SKIN Last Admin: 11/28/18 03:31 Dose: 1 drop Spironolactone (Aldactone Tab*) 25 mg PO DAILY [facility] Last Admin: 12/02/18 09:14 Dose: 25 mg Torsemide (Demadex*) 10 mg PO DAILY [facility] Last Admin: 12/02/18 09:14 Dose: 10 mg Vital Signs - 8 hr 12/02/18 12/02/18 12/02/18 07:44 07:51 08:00 Temperature Pulse Rate 70 71 Respiratory 18 20 18 Rate Blood Pressure 160/78 (mmHg) O2 Sat by Pulse 94 92 Oximetry 12/02/18 12/02/18 12/02/18 09:07 09:55 11:15 Temperature 97.5 F Pulse Rate 71 70 Respiratory 18 18 Rate Blood Pressure 150/73 (mmHg) O2 Sat by Pulse 92 84 95 Oximetry Oxygen Devices in Use Now: Nasal Cannula Appearance: Pleasant elderly lady sitting up in a chair in [place]. Eyes: No Scleral Icterus Ears/Nose/Mouth/Throat: Mucous Membranes Moist Neck: Trachea Midline Respiratory: Symmetrical Chest Expansion and Respiratory Effort, - - BS+ bilaterally, diminished in right base Cardiovascular: RRR - Normal S1 and S2 Abdominal: NL Sounds; No Tenderness; No Distention Extremities: No Edema Neurological: Alert and Oriented x 3, NL Muscle Strength and Tone Result Diagrams: 11/29/18 05:20 11/30/18 05:19 Assess/Plan/Problems-Billing Assessment: 73yo F with HTN, HFpEF, pHTN (group 2/3), DM2 on diet control, bioprosthetic AV , afib on AC, SSS with PPM, morbid obesity with BMI 41, DAIN, asthma, breast CA, presents with SOB, found to have CHF exacerbation. - Patient Problems (1) Acute hypoxemic respiratory failure Comment: - Multifactorial in the setting of CHF exacerbation, asthma exacerbation, possible allergic reaction, and large right pleural effusion s/p thoracentesis. - Improved, but symptoms are returning - requires 4 liters of O2 with exertion and 2 liters at rest. (2) Heart failure, diastolic, with acute decompensation Comment: - Secondary to dietary indiscretion at home - high salt. - Highest weight at home was 271 lbs, now down to 237. - Continue Torsemide and Aldactone. - S/p thoracentesis - fluid was a transudate (pleural/serum protein ratio 0.8 and LDH 139). Cytology negative so far - d/w pathologist - stains for breast CA still pending. - CxR shows pleural effusion is reaccumulating - continue diuretics and monitor - may need another tap. (3) Hypertension Comment: - Trending up - continue Metoprolol, Torsamide, Aldactone - will add Losartan and monitor. (4) Atrial fibrillation Comment: - AV paced - Continue metoprolol succinate 100mg/daily and Apixaban. (5) Asthma Comment: - Suspect mild exacerbation in the setting of possible allergic reaction. - Taper steroids. - Continue inhaled steroids and bronchodilators. (6) Diabetes type 2, controlled Comment: - Diet-controlled at home. A1c 6.8%. - Continue FS with SS. (7) Obstructive sleep apnea Comment: - Continue CPAP. (8) DVT prophylaxis Comment: - Apixaban. (9) Full code status Comment: Daughter Boo (who is a [employer]) phone: [phone] called and updated. Status and Disposition: Inpatient.
[2018-12-02] MEDS: Allopurinol TAB* 100 MG PO SCH (17:22)
[2018-12-02] MEDS: Metoprolol Succinate XL TAB* 100 MG PO SCH (17:22)
[2018-12-02] MEDS: Atorvastatin* 10 MG TAB PO SCH (17:22)
--- NOTE | 2018-12-03 07:52 | PN ---
Subjective Date of Service: 12/03/18 Interval History: HD #11 on 12/03 73W with HTN, HFpEF, DM2 on diet control, bioprosthetic AV, afib on AC, SSS with PPM, morbid obesity c/b DAIN, asthma, presents with SOB, found volume overloaded with CHF exacerbation with pleural effusion s/p thora 11/29 Overnight no acute event, VSS with HTN 161/86 max 2L NC. -1.6L fluid balance in 24 hours, weight 240lbs This morning, seen sitting up in chair, pleasant but reports still with some dyspena. We discuss ongoing diuresis and repeat accumlation of R pleural effusion. She reports that initial thora helped for about a day, though has continued to feel she can't take a deep breath, denies actual chest pain, does get RAMACHANDRAN on exertion, though no tachypnea on rest. No GI MSK or other complaints. Family History: Unchanged from Admission Social History: Unchanged from Admission Past Medical History: Unchanged from Admission Objective Active Medications: Acetaminophen (Tylenol Tab*) 650 mg PO Q6H PRN PRN Reason: FEVER/PAIN Last Admin: 11/24/18 11:32 Dose: 650 mg Albuterol/Ipratropium (Duoneb (Albuterol 2.5 Mg/Ipratropium 0.5 Mg)) 1 neb INH [id number] AWAKE PRN PRN Reason: SOB/WHEEZING Allopurinol (Zyloprim Tab*) 200 mg PO QPM [facility] Last Admin: 12/02/18 17:22 Dose: 200 mg Apixaban (Eliquis*) 5 mg PO BID [facility] Last Admin: 12/02/18 20:41 Dose: 5 mg Atorvastatin Calcium (Lipitor*) 10 mg PO QPM [facility]; Protocol Last Admin: 12/02/18 17:22 Dose: 10 mg Dextrose (D50w Syringe 50 Ml*) 12.5 gm IV PUSH .FOR FS < 60 - SS PRN PRN Reason: FS < 60 Guaifenesin/Dextromethorphan (Robitussin Dm Sugar Free*) 10 ml PO Q6H PRN PRN Reason: Cough/phlegm Insulin Human Lispro (Humalog*) 0 units SUBCUT ACHS [facility]; Protocol Last Admin: 12/02/18 20:40 Dose: 6 units Losartan Potassium (Cozaar Tab*) 25 mg PO DAILY [facility] Last Admin: 12/02/18 09:14 Dose: 25 mg Metoprolol Succinate (Toprol Xl Tab*) 100 mg PO QPM [facility] Last Admin: 12/02/18 17:22 Dose: 100 mg Mometasone Furoate/Formoterol Fumar (Dulera 200/5 Mdi*) 2 puff INH BID [facility] Last Admin: 12/02/18 19:46 Dose: 2 puff Multivitamins/Minerals (Theragran/Minerals Tab*) 1 tab PO DAILY [facility] Last Admin: 12/02/18 09:14 Dose: 1 tab Ondansetron HCl (Zofran Inj*) 4 mg IV Q6H PRN PRN Reason: NAUSEA Prednisone (Deltasone Tab*) 20 mg PO DAILY [facility] Last Admin: 12/02/18 09:14 Dose: 20 mg Sodium Chloride (Sodium Chloride 0.65% Nasal Drops*) 1 drop BOTH NARES Q4H PRN PRN Reason: DRY SKIN Last Admin: 11/28/18 03:31 Dose: 1 drop Spironolactone (Aldactone Tab*) 25 mg PO DAILY [facility] Last Admin: 12/02/18 09:14 Dose: 25 mg Torsemide (Demadex*) 10 mg PO DAILY [facility] Last Admin: 12/02/18 09:14 Dose: 10 mg Vital Signs - 8 hr 12/03/18 12/03/18 12/03/18 02:08 07:35 07:39 Temperature 97.2 F 97.8 F Pulse Rate 70 70 Respiratory 20 20 18 Rate Blood Pressure 161/86 144/71 (mmHg) O2 Sat by Pulse 96 94 Oximetry Oxygen Devices in Use Now: Nasal Cannula Appearance: Pleasant woman in NAD Ears/Nose/Mouth/Throat: NL Teeth, Lips, Gums Neck: NL Appearance and Movements; NL JVP, Trachea Midline Respiratory: - - R side dimisnished Cardiovascular: NL Sounds; No Murmurs; No JVD, RRR, - - Pacemaker Abdominal: NL Sounds; No Tenderness; No Distention Lymphatic: No Cervical Adenopathy Extremities: - - 2+ edema Skin: No Rash or Ulcers Neurological: Alert and Oriented x 3 Result Diagrams: 11/29/18 05:20 11/30/18 05:19 Microbiology and Other Data: Microbiology 11/28/18 14:58 Nasal Screen MRSA (PCR) - Final Nasal Mrsa Not Detected Assess/Plan/Problems-Billing Assessment: 73yF with HTN, HFpEF, pHTN (group 2/3), DM2 on diet control, bioprosthetic AV, afib on AC, SSS with PPM, morbid obesity with BMI 41, DAIN, asthma, distnat breast CA, presents with SOB, found to have CHF exacerbation and R pleural effusion s/p thora 11/29. - Patient Problems (1) Heart failure, diastolic, with acute decompensation Current Visit: Yes Status: Acute Code(s): I50.33 - ACUTE ON CHRONIC DIASTOLIC (CONGESTIVE) HEART FAILURE SNOMED Code(s): 178822287 Comment: - Secondary to dietary indiscretion at home - high salt and dieuretic failure - Highest weight at home was 271 lbs, now down to 240 on 12/03, unclear dry weight - Continue Torsemide and Aldactone. - S/p thoracentesis 11/29 - fluid was a transudate (pleural/serum protein ratio 0.8 and LDH 139). Cytology negative so far - CxR shows pleural effusion is reaccumulating, pHTN class 2/3 never had RHC, though per discussion with Vero 11/30 he was planning on doing so if can get diuresed. (2) Pleural effusion due to CHF (congestive heart failure) Current Visit: Yes Status: Acute Code(s): I50.9 - HEART FAILURE, UNSPECIFIED SNOMED Code(s): 49837033 Comment: - Recurrent R sided effusion, s/p thora 11/29, now with some evidence of reaccumulation - Will reconsult to Dr. Sarkar for thoughts on recurrent transudative effusion mgmt in setting of CHF (3) Atrial fibrillation Current Visit: Yes Status: Acute Code(s): I48.91 - UNSPECIFIED ATRIAL FIBRILLATION SNOMED Code(s): 88876348 Comment: - AV paced - Continue metoprolol succinate 100mg/daily and Apixaban. (4) Hypertension Current Visit: Yes Status: Acute Code(s): I10 - ESSENTIAL (PRIMARY) HYPERTENSION SNOMED Code(s): 88305363 Comment: - Trending up - continue Metoprolol, Torsamide, Aldactone, Losartan added 12/02, CTM (5) Asthma Current Visit: Yes Status: Acute Code(s): J45.909 - UNSPECIFIED ASTHMA, UNCOMPLICATED SNOMED Code(s): 723255117 Comment: - Suspect mild exacerbation in the setting of possible allergic reaction. - Taper steroids. - Continue inhaled steroids and bronchodilators. (6) Diabetes type 2, controlled Current Visit: Yes Status: Acute Code(s): E11.9 - TYPE 2 DIABETES MELLITUS WITHOUT COMPLICATIONS SNOMED Code(s): 32438996 Comment: - Diet-controlled at home. A1c 6.8%. - Continue FS with SS. (7) Obstructive sleep apnea Current Visit: Yes Status: Acute Code(s): G47.33 - OBSTRUCTIVE SLEEP APNEA ( ADULT) (PEDIATRIC) SNOMED Code(s): 12659387 Comment: - Continue CPAP. (8) Morbid obesity with BMI of 40.0-44.9, adult Current Visit: Yes Status: Acute Code(s): E66.01 - MORBID (SEVERE) OBESITY DUE TO EXCESS CALORIES; Z68.41 - BODY MASS INDEX (BMI) 40.0-44.9, ADULT SNOMED Code(s): 369043998 Comment: - Diet and exercise encouraged (9) DVT prophylaxis Current Visit: Yes Status: Acute Code(s): GUY9087 - SNOMED Code(s): 621277541 Comment: - Apixaban. (10) Full code status Current Visit: Yes Status: Acute Code(s): Z78.9 - OTHER SPECIFIED HEALTH STATUS SNOMED Code(s): 352708903 Comment: Daughter Boo (who is a Airline Res[employer]ist) phone: [phone] called and updated. Status and Disposition: Inpatient.
[2018-12-03] MEDS: Losartan TAB* 25 MG PO SCH (08:17)
[2018-12-03] MEDS: Torsemide TAB* 20 MG PO SCH (08:17)
[2018-12-03] MEDS: Multivitamins/Minerals TAB PO SCH (08:17)
[2018-12-03] MEDS: Spironolactone TAB* 25 MG PO SCH (08:17)
[2018-12-03] MEDS: predniSONE TAB* 20 MG PO SCH (08:17)
[2018-12-03] MEDS: Insulin LISPRO* 1 UNITS UNIT SUBCUT SCH ×4 (08:17→20:41)
[2018-12-03] MEDS: Apixaban* 5 MG TAB PO SCH ×2 (08:17→20:40)
[2018-12-03] MEDS: Mometasone/Formoter 200/5 MDI INH SCH ×2 (09:03→19:42)
[2018-12-03] MEDS: Allopurinol TAB* 100 MG PO SCH (17:21)
[2018-12-03] MEDS: Metoprolol Succinate XL TAB* 100 MG PO SCH (17:21)
[2018-12-03] MEDS: Atorvastatin* 10 MG TAB PO SCH (17:21)
[2018-12-04 07:28] LABS: Calcium 9.3 mg/dL (8.6-10.3); Potassium 4.6 mmol/L (3.5-5.0)
[2018-12-04 07:33] LABS: EGFR African American 52.9 (>60); EGFR Non-African American 43.7 (>60)
[2018-12-04] MEDS: Insulin LISPRO* 1 UNITS UNIT SUBCUT SCH ×3 (07:46→17:38)
[2018-12-04] MEDS: Mometasone/Formoter 200/5 MDI INH SCH (08:35)
[2018-12-04] MEDS: Losartan TAB* 25 MG PO SCH (08:38)
[2018-12-04] MEDS: Spironolactone TAB* 25 MG PO SCH (08:38)
[2018-12-04] MEDS: predniSONE TAB* 20 MG PO SCH (08:38)
[2018-12-04] MEDS: Multivitamins/Minerals TAB PO SCH (08:38)
[2018-12-04] MEDS: Torsemide TAB* 20 MG PO SCH (08:39)
--- NOTE | 2018-12-04 11:59 | PN ---
Subjective Date of Service: 12/04/18 Interval History: HD #12 on 12/04 73W with HTN, HFpEF, DM2 on diet control, bioprosthetic AV, afib on AC, SSS with PPM, morbid obesity c/b DAIN, asthma, presents with SOB, found volume overloaded with CHF exacerbation with pleural effusion s/p thora 11/29 Overnight no acute event, VSS with HTN 161/86 max 2L NC. -1.1L fluid balance in 24 hours, weight 240lbs This morning, seen sitting up in chair, pleasant but reports still with some dypsena. We discuss ongoing diuresis and repeat accumulation of R pleural effusion. She reports that initial thora helped for about a day, though has continued to feel she can't take a deep breath, denies actual chest pain, does get RAMACHANDRAN on exertion, though no tachypnea on rest. No GI MSK or other complaints. Discussed case with her steel sash erector who would accept pt to discuss if worsening MR is playing a part given recurrent pleural effusions, she may even be Mitraclip candidate, furhtermore would need RHC. Family History: Unchanged from Admission Social History: Unchanged from Admission Past Medical History: Unchanged from Admission Objective Active Medications: Acetaminophen (Tylenol Tab*) 650 mg PO Q6H PRN PRN Reason: FEVER/PAIN Last Admin: 11/24/18 11:32 Dose: 650 mg Albuterol/Ipratropium (Duoneb (Albuterol 2.5 Mg/Ipratropium 0.5 Mg)) 1 neb INH [id number] AWAKE PRN PRN Reason: SOB/WHEEZING Allopurinol (Zyloprim Tab*) 200 mg PO QPM [facility] Last Admin: 12/03/18 17:21 Dose: 200 mg Atorvastatin Calcium (Lipitor*) 10 mg PO QPM [facility]; Protocol Last Admin: 12/03/18 17:21 Dose: 10 mg Dextrose (D50w Syringe 50 Ml*) 12.5 gm IV PUSH .FOR FS < 60 - SS PRN PRN Reason: FS < 60 Guaifenesin/Dextromethorphan (Robitussin Dm Sugar Free*) 10 ml PO Q6H PRN PRN Reason: Cough/phlegm Insulin Human Lispro (Humalog*) 0 units SUBCUT ACHS [facility]; Protocol Last Admin: 12/04/18 07:46 Dose: Not Given Losartan Potassium (Cozaar Tab*) 25 mg PO DAILY [facility] Last Admin: 12/04/18 08:38 Dose: 25 mg Metoprolol Succinate (Toprol Xl Tab*) 100 mg PO QPM [facility] Last Admin: 12/03/18 17:21 Dose: 100 mg Mometasone Furoate/Formoterol Fumar (Dulera 200/5 Mdi*) 2 puff INH BID [facility] Last Admin: 12/04/18 08:35 Dose: 2 puff Multivitamins/Minerals (Theragran/Minerals Tab*) 1 tab PO DAILY [facility] Last Admin: 12/04/18 08:38 Dose: 1 tab Ondansetron HCl (Zofran Inj*) 4 mg IV Q6H PRN PRN Reason: NAUSEA Prednisone (Deltasone Tab*) 20 mg PO DAILY [facility] Last Admin: 12/04/18 08:38 Dose: 20 mg Sodium Chloride (Sodium Chloride 0.65% Nasal Drops*) 1 drop BOTH NARES Q4H PRN PRN Reason: DRY SKIN Last Admin: 11/28/18 03:31 Dose: 1 drop Spironolactone (Aldactone Tab*) 25 mg PO DAILY [facility] Last Admin: 12/04/18 08:38 Dose: 25 mg Torsemide (Demadex*) 10 mg PO DAILY [facility] Last Admin: 12/04/18 08:39 Dose: 10 mg Vital Signs - 8 hr 12/04/18 12/04/18 07:48 08:00 Temperature 95.8 F Pulse Rate 70 Respiratory 16 16 Rate Blood Pressure 146/68 (mmHg) O2 Sat by Pulse 97 Oximetry Oxygen Devices in Use Now: Nasal Cannula Appearance: Pleasant woman in NAD Ears/Nose/Mouth/Throat: NL Teeth, Lips, Gums Neck: NL Appearance and Movements; NL JVP Respiratory: - - Diminshed to R with crackles Cardiovascular: NL Sounds; No Murmurs; No JVD, RRR, - - 2/6 [place] Abdominal: NL Sounds; No Tenderness; No Distention, No Hepatosplenomegaly Lymphatic: No Cervical Adenopathy Extremities: - - +3 edema Skin: No Rash or Ulcers Neurological: Alert and Oriented x 3, - Result Diagrams: 11/29/18 05:20 12/04/18 06:52 Microbiology and Other Data: Microbiology 11/28/18 14:58 Nasal Screen MRSA (PCR) - Final Nasal Mrsa Not Detected Assess/Plan/Problems-Billing Assessment: 73yF with HTN, HFpEF, pHTN (group 2/3), DM2 on diet control, bioprosthetic AV, afib on AC, SSS with PPM, morbid obesity with BMI 41, DAIN, asthma, distnat breast CA, presents with SOB, found to have CHF exacerbation and R pleural effusion s/p thora 11/29, now w recurrent pleural effusions and consider if MR or severe pHTN is part of picture, may need xfer to cardiology through [place] to evaluate MV. - Patient Problems (1) Heart failure, diastolic, with acute decompensation Current Visit: Yes Status: Acute Code(s): I50.33 - ACUTE ON CHRONIC DIASTOLIC (CONGESTIVE) HEART FAILURE SNOMED Code(s): 624122184 Comment: - Secondary to dietary indiscretion at home - high salt and dieuretic failure vs worsening mitral invovlement - Highest weight at home was 271 lbs, now down to 240 on 12/03, unclear dry weight - Continue Torsemide and Aldactone. - S/p thoracentesis 11/29 - fluid was a transudate (pleural/serum protein ratio 0.8 and LDH 139). Cytology negative so far, considering repeat thora - CxR shows pleural effusion is reaccumulating, pHTN class 2/3 never had RHC, though per discussion with Vero 12/04 she may be a candidate furthermore, as per our prior discussion I was initially concerned MR as part of the picture and possibly thinking about intervention, which she would need to be transferred for, will need to discuss with daughter about this. (2) Pleural effusion due to CHF (congestive heart failure) Current Visit: Yes Status: Acute Code(s): I50.9 - HEART FAILURE, UNSPECIFIED SNOMED Code(s): 96143159 Comment: - Recurrent R sided effusion, s/p thora 11/29, now with some evidence of reaccumulation, will discuss with surgery if possible to do tap for therpeutic purposes (3) Atrial fibrillation Current Visit: Yes Status: Acute Code(s): I48.91 - UNSPECIFIED ATRIAL FIBRILLATION SNOMED Code(s): 98592543 Comment: - AV paced - Continue metoprolol succinate 100mg/daily and Apixaban. (4) Hypertension Current Visit: Yes Status: Acute Code(s): I10 - ESSENTIAL (PRIMARY) HYPERTENSION SNOMED Code(s): 87162263 Comment: - continue Metoprolol, Torsamide, Aldactone, Losartan added 12/02, CTM (5) Asthma Current Visit: Yes Status: Acute Code(s): J45.909 - UNSPECIFIED ASTHMA, UNCOMPLICATED SNOMED Code(s): 011852618 Comment: - Suspect mild exacerbation in the setting of possible allergic reaction. - Taper steroids. - Continue inhaled steroids and bronchodilators. (6) Diabetes type 2, controlled Current Visit: Yes Status: Acute Code(s): E11.9 - TYPE 2 DIABETES MELLITUS WITHOUT COMPLICATIONS SNOMED Code(s): 44511380 Comment: - Diet-controlled at home. A1c 6.8%. - Continue FS with SS. (7) Obstructive sleep apnea Current Visit: Yes Status: Acute Code(s): G47.33 - OBSTRUCTIVE SLEEP APNEA ( ADULT) (PEDIATRIC) SNOMED Code(s): 63912266 Comment: - Continue CPAP. (8) Morbid obesity with BMI of 40.0-44.9, adult Current Visit: Yes Status: Acute Code(s): E66.01 - MORBID (SEVERE) OBESITY DUE TO EXCESS CALORIES; Z68.41 - BODY MASS INDEX (BMI) 40.0-44.9, ADULT SNOMED Code(s): 873989252 Comment: - Diet and exercise encouraged (9) DVT prophylaxis Current Visit: Yes Status: Acute Code(s): LOY9988 - SNOMED Code(s): 376970861 Comment: - Apixaban, held for thora (10) Full code status Current Visit: Yes Status: Acute Code(s): Z78.9 - OTHER SPECIFIED HEALTH STATUS SNOMED Code(s): 863036527 Comment: Daughter Boo (who is a Runway Model) phone: [phone] called and updated. Status and Disposition: Consider transfer for evaluation of mitral involvement.
[2018-12-04 17:11] VITALS: BP 134/66
--- NOTE | 2018-12-04 17:33 | PN ---
Hospitalist Progress Note Date of Service: 12/04/18 Transfer Summary (Formal Dictation to follow) Cell of transferring provider, Dr. Yaneth Cam [phone] Admission: 11/23/18 Discharge: 12/04/18 HPI: 73W with HTN, HFpEF (last EF 50-55% in 2019, elevated RSVP), pulmHTN ( assumed class 2/3), DM2 on diet control, bioprosthetic AV, afib on AC, SSS with PPM, morbid obesity c/b DAIN on CPAP, distant hx of breast Ca, asthma, presents with SOB, found volume overloaded with CHF exacerbation with admission weight 260lbs (which is 20lbs off of her dry weight, roughly) Her hospital course by problem is as follows #CHF Exacerbation: Initial echo done on 11/23 showed EF 55-60%, mild to mod mitral regurg and RVSP elevated to 82. Her admitting CXR showed diffuse "pulm edema and small bilateral pleural effusions" Admitting EKG is paced. -We started diuresis on 11/24 with BID lasix with effective diuresis, roughly -1L per day -We added spironolactone 11/27 for additional diuresis -On 11/28 pt had progressive tachypnea and repeat CXR showed an increase in R sided pleural effusion, a thoracentesis was performed on 11/29 which removed 2L of transudative fluid, she does have a hx of remote breast cancer though special staining from pathology has so far been neg. -We resumed diuresis with torsemide 10mg, and continued to have moderate success until 12/03, where she once again started showing signs of accumulation of pleural fluid and diuresis had slowed, at roughly 240lbs. -We discussed recurrent R pleural effusions with Dr. Tolentino her home lifeguard, and we discussed possibility of right heart cath (given pulm HTN) , or re evaluating mitral valve with GENEVIEVE given poor study TTE with breast implant from distant breast Ca. Given if mitral valve has any involvement and we are unable to provide advanced procedures for mitral regurgitation and in an effort to provide continuity with her prior cardiac team we decided with the patient to transfer her. #Pleural Effusion: As above, had small effusions in setting of diffuse edema on admission that accumulated quickly around 11/27-11/29, transudative on lights criteria -Reaccumlated to moderate perfusion on 12/04 (seen on radiograph and ultrasound) , will likely need thoracentesis in the next 24 to 48 hours for comfort and ELIQUIS has been HELD since 12/03PM - Pt and family would be hesitant to consider Pleurex at this time until further cardiac diagnostics offered. #AFib, SSS s/p PPM -Paced on tele throughout -Remains on rate control Metop Succinate 100 q day -CHADS VASC >3, on ELIQUIS at baseline, held since 12/03/18 PM for possible thora in the next 48 hours #DAIN: Pt adherent with CPAP #Asthma: Treated PRN with bronchodilators. Decision to transfer pt made on above reasons, to pursue RHC or GENEVIEVE If appropriate in setting of persitent decompensation after roughly 20lbs of fluid removed. Also new persitent recurrent R plerual effusions, transudative, concerning for mitral pathology not initially seen on echo. Discussed case with Dr. Pham who accepeted pt on behalf of Dr. Ruelas who is on [facility] Formal dictation to follow with formal data and labs which are included in packet.
[2018-12-04] MEDS: Atorvastatin* 10 MG TAB PO SCH (17:38)
[2018-12-04] MEDS: Metoprolol Succinate XL TAB* 100 MG PO SCH (17:38)
[2018-12-04] MEDS: Allopurinol TAB* 100 MG PO SCH (17:38)
--- NOTE | 2018-12-04 23:07 | TRS ---
TRANSFER SUMMARY: DATE OF ADMISSION: 11/23/18 DATE OF TRANSFER: 12/04/18 TRANSFER HOSPITAL: [facility]. PRIMARY CARE PROVIDER: Knean Maurice MD DETONATOR ASSEMBLER: Dr. Pham. CODE STATUS: Full. PRIMARY DIAGNOSIS: Congestive heart failure exacerbation. SECONDARY DIAGNOSES: 1. Hypertension. 2. Heart failure with preserved ejection fraction. 3. Pulmonary hypertension. 4. Type 2 diabetes, [id number]. 5. Atrial fibrillation, on anticoagulation. 6. Sick sinus syndrome, status post pacemaker. 7. Bioprosthetic atrial valve with history of aortic stenosis. 8. Morbid obesity. 9. Obstructive sleep apnea, on CPAP. 10. Distant history of breast cancer. 11. Asthma. MEDICATIONS ON DISCHARGE: 1. Acetaminophen 650 mg p.o. q.6 hours p.r.n. 2. DuoNeb q.4 hours p.r.n. for shortness of breath. 3. Allopurinol 200 mg p.o. q.p.m. 4. Apixaban 5 mg p.o. b.i.d. which has currently been on hold since 12/03/18 for possible thoracentesis. 5. Atorvastatin 10 mg p.o. q.p.m. 6. Fluticasone 1 puff inhaled b.i.d. 7. Losartan 25 mg p.o. daily. 8. Metoprolol succinate 100 mg p.o. q.p.m. 9. Multivitamins. 10. Saline nasal drops q.4 hours p.r.n. 11. Spironolactone 25 mg p.o. daily. 12. Torsemide 10 mg p.o. daily. Medication changes from her home medications include the addition of spironolactone and addition of losartan as well as the holding of apixaban since 12/03/18. HISTORY OF PRESENT ILLNESS: 73-year-old woman with above past medical history who presented on 11/23/18 to the emergency room with subacute shortness of breath and found to be volume overloaded with CHF exacerbation. Her admission weight was 260 pounds which is 20 pounds off of her dry weight roughly. She states that she had started gaining weight around [place] and did not really tell anybody about it and has slowly accumulated 20 to 25 pounds of water weight, was taking her outpatient diuretic although was not helping much and she did not call her primary care provider or robot designer. She became acutely short of breath and decided to present to the emergency room. Her vital signs are stable in the emergency room other than hypoxia requiring 4 to 5 L nasal cannula, and she had a chest x-ray done that showed diffuse pulmonary edema and small bilateral pleural effusion. She had an echo-cardiogram done that showed an EF of 55% to 60% with mild to moderate regurgitation and RVSP elevated to 82. She was admitted for CHF exacerbation with volume overload and her hospital course by problem list is as follows. 1. Heart failure with preserved ejection fraction, acute on chronic diastolic heart failure. BNP on admission >1300 -We started diuresis on 11/24/18 with b.i.d. Lasix. She had effective diuresis , roughly negative 1 L total balance per day. -We added spironolactone on 11/27/18 for additional diuresis. On 11/28/18, the patient had progressive tachypnea and repeat chest x-ray showed an increase in right-sided pleural effusion. A thoracentesis was performed on 11/29/18, which removed 2 L of transudative fluid. She does have a history of remote breast cancer and special staining was ordered from pathology to make sure that this had no oncologic component, although the overall impression was that it was transudative in the setting of heart failure. -We resumed diuresis with torsemide and continue to have moderate success until 12/03/18, where she once again started showing signs of accumulation of pleural fluid and diuresis had slowed. At that time, her weight was roughly 240 pounds and we achieved 20 pounds of water weight loss in the course of her hospitalization. We discussed her case with her home robot designer, Dr. Pham, twice throughout this hospitalization, who initially recommended the addition of Aldactone as well as continue diuresis prior to repeating advanced cardiologic diagnostics such as right heart cath or GENEVIEVE to look closer at the mitral valve for concerns for progression from eogg-uo-oankvcek regurgitation to severe regurgitation, particularly in the setting of right recurrent pleural effusions. When re-discussing the case on 12/03/18 in the setting of a recurrent right pleural effusion, the decision was made with the family, Dr. Pham, and the advising hospital team here that if patient were to pursue right heart cath, GENEVIEVE , or possibly have any intervention to her mitral valve, she should be transferred to [facility], where her home cardiology team is and that is the decision that was made. 2. Pleural effusion. As above, she had small effusions in the setting of diffuse edema on admission that accumulated quickly around 11/27/18 to 11/28/18 transudative on Light's criteria, re-accumulated to a moderate perfusion once again on 12/04/18 seen on both radiograph and ultrasound, and this patient will likely need thoracentesis in the next 24 to 48 hours for both comfort and improvement of her tachypnea. Her Eliquis has been held since 12/03/18 p.m. The patient and the family would be hesitant to consider a PleurX at this time until further cardiac diagnostics are offered. 3. Atrial fibrillation, sick sinus syndrome, status post pacemaker. She had been paced on tele throughout. She remains on rate control, metoprolol succinate 100 mg per day. Her CHADS-VASc score is greater than 3. She was on Eliquis at baseline, it has been held since 12/03/18 for possible thoracentesis in the next 48 hours. 4. DAIN. Patient is adherent with her CPAP here in the hospital. 5. Asthma. She is treated p.r.n. bronchodilators. 6. HTN. Well controlled on home medications PHYSICAL EXAM ON DAY OF TRANSFER: This is a very pleasant obese woman, sitting up in chair, on 4 L nasal cannula, who gets easily dyspneic on short periods of exertion. She has diminished lung sounds to right middle and scant crackles just prior to that, and otherwise scant crackles at left lung base, otherwise clear to auscultation bilaterally. The patient has a pacemaker with regular rate and rhythm with no murmurs, rubs, or gallops. Her belly is soft, nontender , nondistended with normoactive bowel sounds. No hepatosplenomegaly. She has 2 + pitting edema to shins and chronic venous stasis. It is difficult to assess JVP secondary to her habitus. Neurologically, she is A and O x4. Cranial nerves II through XII are intact. LABS ON DAY OF TRANSFER: BMP was done which showed sodium of 138, potassium 4.6 , chloride 98, carbon dioxide 35, BUN 52, creatinine 1.21, glucose of 119. Last CBC done was 11/29/18, which showed hemoglobin of 11.2, hematocrit of 36, a white blood cell count of 7.1, and platelets of 170. BNP on admission was greater than 1300. Troponins on admission were 0.04, but then trended down by day 2 of admission. LFTs have remained normal. Lactic acid on admission was 1.8. Imaging done in this hospitalization included an echocardiogram on , which was read as preserved left systolic ejection fraction at 55% to 60%, septal flattening of the interventricular septum consistent with right ventricular volume overload, and an RSVP at 82. Her valve assessment is an aortic valve that is bioprosthetic with velocities that are normal; a mitral valve that shows annular calcification, mildly thickened leaflets, mobility is mildly restricted, and mild to moderate mitral regurgitation as well as a mild mitral stenosis, mean gradient across the mitral valve is 6. The tricuspid valve leaflets are normal. There is exdn-fq-xscysckb tricuspid regurgitation. Pulmonic valve is not well visualized and no evidence of pulmonic regurgitation. Overall, the study of the quality was poor. Patient does have a breast implants, so it is difficult study. Overall, evidence of severe pulmonary hypertension. Chest x-ray was done on admission, 11/23/18, which showed severe pulmonary edema with small bilateral pleural effusions. An EKG was done on admission that showed AV paced and she has been placed on tele throughout. A chest x-ray was done on 11/28/18 that showed interval increase in right pleural effusion, large in size. A thoracentesis was done on 11/29/18 with 2 L of transudative fluid removed; cytology was negative and Light's criteria showed transudative. Repeat chest x-ray was done on 11/30/18 showing interval improvement of right pleural effusion and then again a repeat x-ray was done on both 12/02/18 and 12/04/18, which showed slow accumulation of pleural effusion and on day of transfer shows moderate pleural effusion comparative to her prior chest x-rays. ISSUES TO FOLLOW UP ON TRANSFER: This patient overall is being transferred for evaluation from her home cardiologic team. 1. HFpEF, pHTN, possible mitral involvement She has had successful diuresis at our hospital although continues to have recurrent right pleural effusions in the setting of possibly high suspicion of severe mitral regurgitation versus other etiology and furthermore is reasonable to consider a right heart catheter, patient with severe pulmonary hypertension with resistant to diuresis heart failure. When discussing the options of GENEVIEVE to better evaluate the mitral valve as well as right heart cath to better estimate her pulmonary artery pressures and wedge pressures, the patient and her family chose to be transferred to her home robot designer where she had had prior procedures done which is wholly reasonable. Furthermore, if there is severe mitral regurgitation as suspicion allows, the transfer hospital has the ability to offer interventions to mitral valve that [facility] could not offer. 2. Recurrent R pleural effusion Furthermore, it is important to note in the transfer summary that this patient has a moderate right-sided pleural effusion on day of transfer and we were in fact planning to do a thoracentesis tomorrow 12/05/18, although when bed became available patient and her family elected to be transferred. This patient may need a right thoracentesis in the next 24 to 48 hours and has been held off of her apixaban since 12/03/18 to allow this process to occur. Please do not hesitate to contact us if you have any questions. I am the transferring provider and my last name is Tutu, first name Yaneth, my cell phone number is and we would appreciate if you would reach out and ask any questions if needed. TIME SPENT: Sixty minutes was spent in the planning of this transfer with over half of that time spent directly at the bedside of the patient providing direct patient's care. We have discussed the pros and cons of transfer as well as outlined next steps with the cardiology team at [facility], who at this time is being led by Niels Ruelas, who is the accepting physician. Her condition at time of transfer is stable, on nasal cannula, and does not need any medications en route. The patient and her family are agreeable to transfer and the patient exited [facility] at 6:30 p.m. on 12/04/18. [id number]/[facility] #: [id number] [place]
== END 2018-12-04 18:40 | disposition short-term general hospital (02) | DRG 291 ==
LOC: ED 10:33 → MEDTELE 14:31 → ICU 11-28 12:10 → MED 11-30 20:57
PROVIDERS: ADMIT Student in an Organized Health Care Education/Training Program; ATTEND Internal Medicine
PROC: 5A09357 Assistance with Respiratory Ventilation, Less than 24 Consecutive Hours, Continuous Positive Airway Pressure (ICD-10-PCS; principal; 2018-11-24)
PROC: 0W993ZZ Drainage of Right Pleural Cavity, Percutaneous Approach (ICD-10-PCS; 2018-11-29)
DX: I11.0 Hypertensive heart disease with heart failure (principal); J96.01 Acute respiratory failure with hypoxia; N17.9 Acute kidney failure, unspecified; J90 Pleural effusion, not elsewhere classified; Z68.41 Body mass index [BMI] 40.0-44.9, adult; E87.3 Alkalosis; R04.0 Epistaxis; I50.33 Acute on chronic diastolic (congestive) heart failure; E66.01 Morbid (severe) obesity due to excess calories; J45.909 Unspecified asthma, uncomplicated; G47.33 Obstructive sleep apnea (adult) (pediatric); I34.0 Nonrheumatic mitral (valve) insufficiency; I27.81 Cor pulmonale (chronic); I27.20 Pulmonary hypertension, unspecified; I48.0 Paroxysmal atrial fibrillation; E11.9 Type 2 diabetes mellitus without complications; Z95.2 Presence of prosthetic heart valve; Z95.0 Presence of cardiac pacemaker; Z90.49 Acquired absence of other specified parts of digestive tract; Z90.711 Acquired absence of uterus with remaining cervical stump; Z72.89 Other problems related to lifestyle; Z87.891 Personal history of nicotine dependence; Z82.49 Family history of ischemic heart disease and other diseases of the circulatory system; Z81.1 Family history of alcohol abuse and dependence; Z83.3 Family history of diabetes mellitus; Z80.7 Family history of other malignant neoplasms of lymphoid, hematopoietic and related tissues; Z79.01 Long term (current) use of anticoagulants
CPT/HCPCS: 36415; 71045; 71046; 76604; 80048; 80053; 82150; 82945; 83036; 83605; 83615; 83735; 83880; 83986; 84157; 84484; 85025; 85027; 85610; 85730; 87070; 87205; 87641; 88112; 88305; 88341; 88342; 89051; 90686; 93005; 93306; 94640; 94660; 99284; A9270-GY; C8929; G8978-GP-CI; G8978-GP-CK; G8979-GP-CH; G8979-GP-CI; G8980-GP-CI; G8987-GO-CI; G8988-GO-CI; G8989-GO-CI; J0360; J1200; J1940; J2920; J2930; J3475; J7512

== ENCOUNTER 2019-01-08 23:17 | Emergency (ER) | payer MEDICARE, BC ==
--- NOTE | 2019-01-08 23:45 | ED ---
GI/ HPI - HPI Summary HPI Summary: A 73 y/o F presents to ED with c/o vaginal bleeding onset today. She went to [facility] this afternoon and they saw dark blood in her uterus. She was cautioned that if she saw bright red blood or if the bleeding became heavier that she should go to the ED, which is what happened. She is scheduled to see a PA at Dr. Campos's office tomorrow morning. Associated sx: abd cramping. Denies dizziness, lightheadedness. She stopped taking estrogen replacement in 2001 and has had no bleeding since; she had regular [facility] check-ups until about 2010-. PMHx: Breast CA, CHF, aortic stenosis, valve replacement, pacemaker, asthma, kidney "problems." She takes a blood thinner. - History of Current Complaint Chief Complaint: EDVaginalBleeding Time Seen by Provider: 01/08/19 23:39 Stated Complaint: VAGINAL BLEEDING PER PT Hx Obtained From: Patient, Medical Records Onset/Duration: Started Hours Ago, Still Present Timing: Constant Severity: Moderate Current Severity: Moderate Vaginal Bleeding Description: Bright Red Pain Intensity: 6 - out of 10 Pain Characteristics: Cramping Associated Signs and Symptoms: Positive: Abdominal Pain - cramping. Negative: Dizziness, Lightheadedness Additional Signs & Symptoms: Positive: Vaginal Bleeding - Additional Pertinent History Primary Care Physician: [id number] - Allergy/Home Medications Allergies/Adverse Reactions: Allergies Allergy/AdvReac Type Severity Reaction Status Date / Time hydralazine AdvReac Difficulty Verified 11/28/18 05:56 Breathing Home Medications: Home Medications Spironolactone TAB* [Aldactone TAB 25 MG*] 12.5 mg PO DAILY 01/08/19 [History Confirmed 01/08/19] Torsemide TAB* [Demadex 20 MG*] 20 mg PO DAILY 01/08/19 [History Confirmed 01/08] PMH/Surg Hx/FS Hx/Imm Hx Previously Healthy: No Endocrine/Hematology History: Reports: Hx Diabetes Cardiovascular History: Reports: Hx Pacemaker/ICD, Other Cardiovascular Problems /Disorders - aortic stenosis Respiratory History: Reports: Hx Asthma, Hx Chronic Obstructive Pulmonary Disease (COPD) - 2L 02, Hx Sleep Apnea Sensory History: Reports: Hx Contacts or Glasses Denies: Hx Legally Blind, Hx Deafness, Hx Hearing Aid Opthamlomology History: Reports: Hx Contacts or Glasses Denies: Hx Legally Blind - Cancer History Cancer Type, Location and Year: breast cx, left mastectomy - Immunization History Date of Tetanus Vaccine: unk Date of Influenza Vaccine: Nov 2018 Infectious Disease History: No Infectious Disease History: Denies: Traveled Outside the [place] in Last 30 Days - Family History Known Family History: Positive: Cardiac Disease, Diabetes - Social History Occupation: Retired Lives: Alone Alcohol Use: Occasionally Substance Use Type: Reports: None Hx Tobacco Use: Yes Smoking Status (MU): Former Smoker Amount Used/How Often: 2 PPD Review of Systems Positive: Abdominal Pain - cramping Positive: other - pos: vaginal bleeding Neurological: Other - neg: dizziness/lightheadedness All Other Systems Reviewed And Are Negative: Yes Physical Exam - Summary Physical Exam Summary: Appearance: Well-appearing, Well-nourished, lying in bed comfortably Skin: Warm, dry, no obvious rash Eyes: sclera anicteric, no conjunctival pallor ENT: mucous membranes moist, pharynx appears normal Neck: Supple, nontender Respiratory: Clear to auscultation, no signs of respiratory distress Cardiovascular: Normal S1, S2. No murmurs. Normal distal pulses in tibial and radial bilaterally. Abdomen: Soft, nontender, normal active bowel sounds present, umbilical hernia Musculoskeletal: Normal, Strength/ROM Intact Neurological: A&Ox3, awake and alert, mentation is normal, speech is fluent and appropriate Psychiatric: affect is normal, does not appear anxious or depressed Triage Information Reviewed: Yes Vital Signs On Initial Exam: Initial Vitals Temp Pulse Resp BP Pulse Ox 97.4 F 85 20 142/72 95 01/08/19 23:19 01/08/19 23:19 01/08/19 23:19 01/08/19 23:19 01/08/19 23:19 Vital Signs Reviewed: Yes Diagnostics - Vital Signs Vital Signs Temp Pulse Resp BP Pulse Ox 01/08/19 23:19 97.4 F 85 20 142/72 95 - Laboratory Result Diagrams: 01/09/19 00:45 01/09/19 00:45 Lab Statement: Any lab studies that have been ordered have been reviewed, and results considered in the medical decision making process. Re-Evaluation - Re-Evaluation 1 Re-Evaluation Time: 01:41 Comment: Discussing results with pt and plan for discharge. GIGU Course/Dx - Course Course Of Treatment: Pt is a 73 y/o F presents with bright red vaginal bleeding and mild abd cramping onset today. She denies dizziness, lightheadedness. She stopped taking estrogen replacement in 2001 and has had no bleeding since; she had regular [facility] check-ups until about 2010-. She is on a blood thinner. Will discharge patient home. - Diagnoses Provider Diagnoses: Postmenopausal vaginal bleeding, Hyponatremia, Chronic renal insufficiency Discharge - Sign-Out/Discharge Documenting (check all that apply): Patient Departure - DC Patient Received Moderate/Deep Sedation with Procedure: No - Discharge Plan Condition: Good Disposition: HOME Referrals: Bry Valadez MD [Medical Doctor] - Additional Instructions: Post menopausal uterine bleeding is never normal and always requires a workup, generally starting with an endometrial biopsy and uterine ultrasound. This can be done at Dr. Valadez's office. This will be complicated by your blood thinner, which may need to be stopped in order to do the biopsy. After you make an appt with Dr. Valadez's office you will need to contact Dr. Pham's office and find out if you can stop your eliquis, and if so will you need some other type of short term "bridge" around the time of the biopsy. Right now there is no sign of severe bleeding requiring a transfusion and I don' t anticipate that will happen. Your red blood cell counts are good. Some of your blood chemistry tests were mildly abnormal, mainly your kidney function tests and blood sodium level, but not so abnormal as to require any specific treatment right now. However, you will need close followup over the coming week. - Billing Disposition and Condition Condition: GOOD Disposition: Home - Attestation Statements Document Initiated by Fawad: Yes Documenting Shanaibe: Yoselin Hale Provider For Whom Fawad is Documenting (Include Credential): Dr. Donell Cabrales MD Scribe Attestation: I, merrill Garyed for Dr. Donell Cabrales MD on 01/09/19 at 0438. Scribe Documentation Reviewed: Yes Provider Attestation: The documentation as recorded by the Yoselin alvarez accurately reflects the service I personally performed and the decisions made by me, Dr. Donell Cabrales MD Status of Scribe Document: Viewed
[2019-01-09 00:56] LABS: Hematocrit 35 % (33-41); Hemoglobin 11.8 g/dL (12.0-16.0); Mean Corpuscular HGB Conc 34 g/dL (31-36); Mean Corpuscular Hemoglobin 30 pg (27-31); Mean Corpuscular Volume 88 fL (80-97); Mean Platelet Volume 8.1 fL (7.4-10.4); Platelet Count 195 10^3/uL (150-450); Red Blood Count 3.97 10^6 /uL (3.70-4.87); Red Cell Distribution Width 15 % (10.5-15); White Blood Count 7.5 10^3/uL (3.5-10.8)
[2019-01-09 01:01] LABS: INR 1.45 (0.82-1.09)
[2019-01-09 01:12] LABS: Albumin/Globulin Ratio 1.1 (1-3); EGFR African American 32.8 (>60); EGFR Non-African American 27.1 (>60); Globulin 3.5 g/dL (2-4); Potassium 4.1 mmol/L (3.5-5.0); Total Bilirubin 1.2 mg/dL (0.2-1.0); Total Protein 7.5 g/dL (6.4-8.9)
[2019-01-09 01:54] VITALS: BP 135/67
[2019-01-09 01:58] LABS: ABS Basophils 0.1 10^3/ul (0-0.2); ABS Eosinophils 0.2 10^3/ul (0-0.6); ABS Lymphocytes 1.2 10^3/ul (1.0-4.8); ABS Monocytes 0.9 10^3/ul (0-0.8); ABS Nucleated RBC 0 10^3/ul; Eosinophil % 2.3 %; Lymphocyte % 15.7 %; Nucleated Red Blood Cells % 0.1
== END 2019-01-09 01:54 | disposition home or self-care (01) ==
LOC: ED 23:17
DX: N95.0 Postmenopausal bleeding (principal); E87.1 Hypo-osmolality and hyponatremia; N18.9 Chronic kidney disease, unspecified; E11.9 Type 2 diabetes mellitus without complications; Z95.810 Presence of automatic (implantable) cardiac defibrillator; J44.9 Chronic obstructive pulmonary disease, unspecified; Z85.3 Personal history of malignant neoplasm of breast; Z87.891 Personal history of nicotine dependence; I50.9 Heart failure, unspecified; I35.0 Nonrheumatic aortic (valve) stenosis; Z79.01 Long term (current) use of anticoagulants; Z95.2 Presence of prosthetic heart valve
CPT/HCPCS: 36415; 80053; 85025; 85610; 86850; 86870; 86880; 86900; 86901; 99282

== ENCOUNTER 2019-08-27 11:11 | Day surgery (SDC) | payer MEDICARE, BC ==
[2019-08-27] MEDS ORDERED: fentaNYL* 50 MCG/ML 2 ML VIAL (100 MCG VIAL) ONE (12:41)
[2019-08-27] MEDS ORDERED: Midazolam* 1 MG/ML 5 ML VIAL (5 MG) ONE (12:41)
[2019-08-27] MEDS ORDERED: acetaZOLAMIDE TAB* 250 MG ONE (15:24)
[2019-08-27] MEDS ORDERED: Lidocaine 1% MPF ** 5 ML VIAL ONE (15:24)
[2019-08-27] MEDS ORDERED: Neomycin/Polymy/Dex OPHTH.OIN* 3.5 GM ONE (15:24)
[2019-08-27] MEDS ORDERED: Cyclopentolate 1% OPTH.SOL* 2 ML BTL ONE (15:24)
[2019-08-27] MEDS ORDERED: Phenylephrine OPHTH SOL 2.5%* 2 ML ONE (15:24)
[2019-08-27] MEDS ORDERED: Ketorolac 0.5% OPHTH (NF) 0.5 % 5 ML BTL ONE (15:24)
[2019-08-27] MEDS ORDERED: Povidone Iodine 5% OPTH* 30 ML BTL ONE (15:24)
[2019-08-27] MEDS ORDERED: Tetracaine 0.5% OPTH.SOL 4 ML* 1 DROP BTL ONE (15:24)
[2019-08-27] MEDS ORDERED: Tropicamide 1% OPTH.SOL* BTL ONE (15:24)
--- NOTE | 2019-08-27 18:18 | OP ---
DATE OF OPERATION: 08/27/19 - [facility] DATE OF : 47 SURGEON: Nathan Brooks MD ANESTHESIA: Monitored anesthesia care. PREOPERATIVE DIAGNOSIS: Cataract, right eye. POSTOPERATIVE DIAGNOSIS: Cataract, right eye. OPERATIVE PROCEDURE: Extracapsular cataract extraction of the right eye with intraocular lens implant. IMPLANT: SN60WF 20.5 diopter lens to the right eye. COMPLICATIONS: None. DESCRIPTION OF PROCEDURE: The patient was given phenylephrine 2.5 % and cyclopentolate 1% eye drops to the operative eye in the preoperative area. The patient was taken to the operating room where a time-out was taken to identify the correct patient, site, and side of surgery. The patient's right eye was prepped and draped in the usual sterile fashion with 5% Betadine. A second time- out was taken to verify the correct patient, side, and site of surgery, as well as the correct lens implant. A lid speculum was placed to the right eye. A 1mm paracentesis blade was used to make a clear corneal incision. Preservative-free 1% lidocaine was injected into the anterior chamber. DisCoVisc was then injected into the anterior chamber. A 2.75 mm keratome blade was used to make a triplanar incision. A cystotome initiated a capsulorrhexis, which was completed with Utrata forceps in a continuous and curvilinear manner. Hydrodissection of the lens was performed with BSS on a cannula. The lens could be spun in a capsular bag. The phacoemulsification handpiece was used with a divide-and- conquer technique to remove the nucleus. The I/A handpiece then removed the residual cortical lens material. DisCoVisc was injected to inflate the capsular bag. The planned SN60WF 20.5 diopter lens was injected into the capsular bag. The residual DisCoVisc was removed from the eye with the I/A handpiece. The corneal incisions were hydrated and no leaks occurred at physiologic pressure around 20 mmHg per palpation. The lid speculum was removed and drapes were removed. Maxitrol ointment was placed to the surface of the operative eye. An adhesive patch and shield was then placed on the operative eye. The patient was taken to the postoperative area in stable condition. [id number]/[facility] #: [id number] [facility]
[2019-09-03 11:21] VITALS: BP 137/64
== END 2019-08-27 14:21 | disposition home or self-care (01) ==
LOC: OREAST 11:11
PROVIDERS: ATTEND Student in an Organized Health Care Education/Training Program
DX: H25.11 Age-related nuclear cataract, right eye (principal); I35.0 Nonrheumatic aortic (valve) stenosis; E11.9 Type 2 diabetes mellitus without complications; I50.9 Heart failure, unspecified; N18.9 Chronic kidney disease, unspecified; Z87.891 Personal history of nicotine dependence; Z85.3 Personal history of malignant neoplasm of breast
CPT/HCPCS: A9270-GY; J2250; J3010; V2632

== ENCOUNTER 2019-09-03 10:44 | Day surgery (SDC) | payer MEDICARE, BC ==
[~2019-09-03 10:44] MED LIST: Acetaminophen TAB* 325 MG PO PRN; Cyclopentolate 1% OPTH.SOL* 2 ML BTL ONE; Ketorolac 0.5% OPHTH (NF) 0.5 % 5 ML BTL ONE; Lidocaine 1% MPF ** 5 ML VIAL ONE; Neomycin/Polymy/Dex OPHTH.OIN* 3.5 GM ONE; Phenylephrine OPHTH SOL 2.5%* 2 ML ONE; Povidone Iodine 5% OPTH* 30 ML BTL ONE; Tetracaine 0.5% OPTH.SOL 4 ML* 1 DROP BTL ONE; Tropicamide 1% OPTH.SOL* BTL ONE; acetaZOLAMIDE TAB* 250 MG ONE
[2019-09-03] MEDS ORDERED: fentaNYL* 50 MCG/ML 2 ML VIAL (100 MCG VIAL) ONE (13:03)
[2019-09-03] MEDS ORDERED: Midazolam* 1 MG/ML 2 ML VIAL (2 MG) ONE (13:03)
[2019-09-03 13:53] VITALS: BP 141/56
--- NOTE | 2019-09-03 21:22 | OP ---
DATE OF OPERATION: 09/03/19 - [facility] DATE OF : 47 SURGEON: Nathan Brooks MD ANESTHESIA: Monitored anesthesia care. PRE-OP DIAGNOSIS: Cataract, left eye. POST-OP DIAGNOSIS: Cataract, left eye. OPERATIVE PROCEDURE: Extracapsular cataract extraction of the left eye with intraocular lens implant. IMPLANT: SN60WF 20.0 diopter lens to the left eye. COMPLICATIONS: None. DESCRIPTION OF PROCEDURE: The patient was given phenylephrine 2.5 % and cyclopentolate 1% eye drops to the operative eye in the preoperative area. The patient was taken to the operating room where a time-out was taken to identify the correct patient, site, and side of surgery. The patient's left eye was prepped and draped in the usual sterile fashion with 5% Betadine. A second time- out was taken to verify the correct patient, side, and site of surgery, as well as the correct lens implant. A lid speculum was placed to the left eye. A 1mm paracentesis blade was used to make a clear corneal incision. Preservative-free 1% lidocaine was injected into the anterior chamber. DisCoVisc was then injected into the anterior chamber. A 2.75 mm keratome blade was used to make a triplanar incision. A cystotome initiated a capsulorrhexis, which was completed with Utrata forceps in a continuous and curvilinear manner. Hydrodissection of the lens was performed with BSS on a cannula. The lens could be spun in a capsular bag. The phacoemulsification handpiece was used with a divide-and- conquer technique to remove the nucleus. The I/A handpiece then removed the residual cortical lens material. DisCoVisc was injected to inflate the capsular bag. The planned SN60WF 20.0 diopter lens was injected into the capsular bag. The residual DisCoVisc was removed from the eye with the I/A handpiece. The corneal incisions were hydrated and no leaks occurred at physiologic pressure around 20 mmHg per palpation. The lid speculum was removed and drapes were removed. Maxitrol ointment was placed to the surface of the operative eye. An adhesive patch and shield was then placed on the operative eye. The patient was taken to the postoperative area in stable condition. [id number]/[facility] #: [id number] [facility]
== END 2019-09-03 13:45 | disposition home or self-care (01) ==
LOC: OREAST 10:44
PROVIDERS: ATTEND Student in an Organized Health Care Education/Training Program
DX: H25.12 Age-related nuclear cataract, left eye (principal); E11.9 Type 2 diabetes mellitus without complications; I50.9 Heart failure, unspecified; Z95.0 Presence of cardiac pacemaker; Z95.2 Presence of prosthetic heart valve; Z87.891 Personal history of nicotine dependence; I35.0 Nonrheumatic aortic (valve) stenosis; G47.33 Obstructive sleep apnea (adult) (pediatric); N18.9 Chronic kidney disease, unspecified; I12.9 Hypertensive chronic kidney disease with stage 1 through stage 4 chronic kidney disease, or unspecified chronic kidney disease
CPT/HCPCS: A9270-GY; J2250; J3010; V2632